=== PATIENT | female | born 1945 | race Caucasian/White ===

== ENCOUNTER 2022-08-12 10:45 | Outpatient (RCR) | payer MEDICARE, OTHER, SELFPAY ==
--- NOTE | 2022-07-14 11:02 | PT.OPDN ---
PT [facility] Daily Note PT [facility] Daily Note Start: 05/26/22 08:33 Freq: Status: Active Protocol: Document 07/14/22 09:59 CJT (Rec: 07/14/22 11:02 CJT [id number]) E-signed By Keyon Mancera, PT PT OP Daily Progress Note Visit Information Note Type Daily Note,Recert/Progress Note Visit Number [id number] Insurance Authorized Visits tbd Physician Authorized Visits eval and treat Insurance Information Recert Due Date 07/10/22 Insurance Name Medicare B Medical Diagnosis PO RT RCR Treating Diagnosis M25.511 - R shoulder pain M25.611 - R shoulder stiffness Referring Sudarshan Hamilton MD Subjective Subjective Pt notes she had her appointment with Dr. Espino last week and this went very well. Feels her strength and ROM is progressing well but is concerned that she has a bit too much tension in her shoulder during the wall shoulder flexion stretch. Denies pain in the shoulder but is having some soreness following her exercises with the bands. Home Exercise Home Exercise Comments [id number] Objective Other/Pertinent Objective R shoulder AROM Flexion/Abd/IR/ER - 168/170/60 (L3)/80 R shoulder strength: grossly 4 +/5 MMT in all directions Empty Can: 4/5 MMT Patient Instructed in Risks/Benefits Yes Therapeutic Exercise Therapeutic Exercise Minutes (minutes) 35 Therapeutic Exercise: To Restore UBE x 6 minutes Functional Status Band IR/ER with GRB 2 x 20 reps ea Band IR/ER at 90 degrees abduction - discontinued due to discomfort in Lateral shoulder Passive flexion stretch in supine 2 x 45 Body Blade reactive isometrics : ER/IR, scapular depression/ elevation 2 x 30 ea Manual Therapy Techniques Manual Therapy Minutes (minutes) 8 Manual Therapy Techniques STM to R UT, levator, pec minor/major, infraspinatus, teres group, serratus anterior , rhomboids, and thoracic paraspinals to reduce tissue tension and improve extensibility. Grade II-III AP mobilizations to R GHJ to improve flexion ROM Treatment Minutes Timed Code Treatment Minutes 43 Total Treatment Time 43 Billing Units Therapeutic Exercise Units 3 Assessment/Impression Assessment/Impression Lara shows excellent R shoulder ROM following mobilizations and stretching today. Initial measure of shoulder flexion was 150 degrees; 168 degrees at end of today's session. IR ROM still limited compared to L but is showing improvement with each session. Lara's strength is still limited but I do not expect it will increase much beyond where she is now as she is functional with her R arm. most importantly, Lara is progressing back into normal life well and using her R arm often and without hesitation for activities including reaching, grabbing, lifting, etc. Lara is due to recertification and I don't think I will need to see her after her next visit on [address]. [address] POC extending additional 4 weeks, 2 additional visits to be used if needed. Plan of Care Physical Therapy Goals STG - To be completed in 2-3 weeks: 1. Pt will report consistent use of sling to protect repaired supraspinatus tendon. MET 2. Pt will report ability to sleep 5-6 hours per night consistently with use of NSAIDs. MET 3. Pt will demo 100 degrees PROM flexion to reduce risk of adhesive capsulitis and progress in a timely manner in regard to her rehab protocol. MET LTG - To be completed in 8-12 weeks: 1. Pt to be I with HEP so that they may I manage progression of symptoms. 2. Pt will demo 5/5 MMT for all shoulder motions as indication of improved strength in R shoulder. NOT MET 3. Pt will report ability to garrison/doff bra with use of R hand so that she may dress I without shoulder pain. MET 4. Pt will report ability to sleep through the night without waking due to pain so that she may wake rested with reduced mental fatigue. MET 5. Pt will demo 165 degrees shoulder flexion and abduction so that she may reach cans of soup in top shelf in pantry. MET Daily Plan of Care Continue per POC Daily Plan of Care Comments 2 additional visits over 4 weeks. Certification I Certify That: Therapy Services Provided, Therapy Plan Established, Therapy Plan Reviewed Recertification Information Recertification Start Date 07/28/22 Recertification Due Date 08/28/22 Reasons to Continue Skilled Therapy Physical therapy services are indicated at this time for continued focus on maintaining /improving R shoulder ROM and strength. Pt continues to struggle with control of R GHJ with shoulder abducted to 90 degrees but shows good control and denies pain when performing activities in neutral positions. Will work on progressing to activities and exercises that involve reaching and strengthening away from the body. Rehabilitation Potential Excellent Continued Plan of Care and Interventions Therapeutic exercise for stretching and strengthening; manual therapy as needed to improve mobility Provider Signature Shows Agreement With POC & Medical Necessity Physician Comment/Change Comment or Changes Physician NPI Number #
== END 2022-10-12 11:21 | disposition home or self-care (01) ==
PROVIDERS: PCP Physician Assistant Medical; Visit Provider Orthopaedic Surgery Sports Medicine
DX: M25.511 Pain in right shoulder (principal); Z51.89 Encounter for other specified aftercare
CPT/HCPCS: 97110; 97140

== ENCOUNTER 2023-06-10 12:39 | Outpatient (CLI) | payer MEDICARE, OTHER, SELFPAY ==
--- NOTE | 2023-06-10 13:00 | CRLHL7_ITS ---
For Patients: As a result of the Century Cures Act, medical imaging exams and procedure reports are released immediately into your electronic medical record. You may view this report before your referring provider. If you have questions, please contact your health care provider. DXA BONE MINERAL DENSITY STUDY Reason for exam: Postmenopausal. Current height (in): 65.5. Weight (lb): 184. Menopause age: 52. Ethnicity: White. 1. Have you had a previous hip or vertebral fracture? No. 2. Have you had any fractures during your adult life which did not result from significant trauma (e.g., auto accident)? No. 3. Did either of your parents have a hip fracture? No. 4. Do you smoke? No. 5. Have you ever taken Glucocorticoids? No. 6. Do you have rheumatoid arthritis? No. 7. Do you have secondary osteoporosis? No. 8. Do you drink 3 or more alcoholic drinks per day? No. 9. Are you being treated for osteoporosis? No. 10. Have you ever taken any of the following medications: Actonel, Evista, Fosamax, Miacalcin, Reclast, Boniva, Forteo, HRT (i.e., estrogen/hormone therapy), Protelos, Prolia, Vitamin D, Calcium, other ??? please specify. ANSWER: Yes, vitamin D and B-6/B-12. 11. Do you have any of the following medical conditions: Anorexia or bulimia, asthma or emphysema, end stage renal disease, hyperparathyroidism, any seizure disorders, cancer, inflammatory bowel diseases, hysterectomy, other ??? please specify. ANSWER: No. 12. What was your maximum height (inches)? 66. 13. Do you perform weight bearing exercise regularly? Yes. 14. Do you regularly consume dairy products? Yes. 15. Do you drink caffeinated beverages? Yes. If female: 16. At what age did your period start? 14. 17. Are you premenopausal? No. 18. How many full-term pregnancies have you had? 2. 19. Have you ever missed your period for more than 6 months in a row (not including or menopause)? No. TECHNIQUE: Bone mineral density study was performed using the [employer]. FINDINGS: The results of the study expressed as bone mineral density (BMD) are as follows: Lumbar spine L1, L2, L4: BMD: 0.976 g/cm2. T-score: -0.5. Z-score: 1.9 Neck Left: BMD: 0.788 g/cm2. T-score: -0.6. Z-score: 1.6 Right: BMD: 0.911 g/cm2. T-score: 0.6. Z-score: 2.7 Total Left: BMD: 0.948 g/cm2. T-score: 0.1. Z-score: 1.9 Right: BMD: 0.971 g/cm2. T-score: 0.2. Z-score: 2.1 Radius Left 33%: BMD: 0.585 g/cm2. T-score: -1.8. Z-score: 0.8 IMPRESSION: Osteopenia. *Comparison exams done prior to 04/2020 were performed on different unit, [facility]. COMPARISON: Compared with scan of 05/28/2021, the bone mineral density has increased by 3.9 percent at the spine increased by 1.2 percent at the hip and increased by 1.2 percent at the left forearm. Compared with scan of 06/15/2019, the bone mineral density has decreased by 1.0 percent at the spine increased by 9.0 percent at the hip. Edvin Breaux M.D. Diagnostic Radiologist [email or web address] KAREN/[email or web address] babin/Dictated by: Edvin Breaux MD @ 06/10/2023 2:04:00 PM (Electronically Signed)
--- NOTE | 2023-06-10 13:31 | CRLHL7_ITS ---
For Patients: As a result of the Cures Act, medical imaging exams and procedure reports are released immediately into your electronic medical record. You may view this report before your referring provider. If you have questions, please contact your health care provider. BILATERAL SCREENING MAMMOGRAM WITH COMPUTER-AIDED DETECTION AND TOMOSYNTHESIS TECHNIQUE: CC and MLO views were obtained. These mammographic images have been obtained using full-field digital technique. These mammographic images were interpreted with the benefit of computer-aided detection. Breast tomosynthesis was used in this interpretation. COMPARISON FILM: 05/28/21, 06/15/19, 05/18/18. FINDINGS: There are scattered areas of fibroglandular density. IMPRESSION: There is no radiographic evidence for malignancy. ASSESSMENT: BI-RADS Category 1: Negative RECOMMENDATION: Routine screening mammogram in 1 year. A lay language report of this examination will be provided to the patient. EDVIN GRISSOM M.D. Diagnostic Radiologist [email or web address] Transcribed: 06/11/2023, 3:[address]/Dictated by: Edvin Grissom MD @ 06/11/2023 9:56:00 AM (Electronically Signed)
== END 2023-06-10 12:40 | disposition home or self-care (01) ==
PROVIDERS: PCP Physician Assistant Medical; Visit Provider Physician Assistant Medical
DX: Z12.31 Encounter for screening mammogram for malignant neoplasm of breast; Z78.0 Asymptomatic menopausal state; M85.89 Other specified disorders of bone density and structure, multiple sites
CPT/HCPCS: 77063; 77067; 77080

== ENCOUNTER 2023-06-23 09:32 | Outpatient (CLI) | payer MEDICARE, OTHER, SELFPAY | END 2023-06-23 09:33 | disposition home or self-care (01) | LOC: NFLDREF 06-24 07:38 | PROVIDERS: PCP Physician Assistant Medical; Referring Provider Physician Assistant Medical; Visit Provider Physician Assistant Medical | DX: Z00.00 Encounter for general adult medical examination without abnormal findings (principal); D50.9 Iron deficiency anemia, unspecified; E78.5 Hyperlipidemia, unspecified; R03.0 Elevated blood-pressure reading, without diagnosis of hypertension | CPT/HCPCS: 80061; 84443 ==

== ENCOUNTER 2023-07-28 06:04 | Day surgery (SDC) | payer MEDICARE, OTHER, SELFPAY ==
[2023-07-28] MEDS: TETRACAINE 0.5% OPHTH 1 DROP EYE-RIGHT ×2 (06:30→06:35)
[2023-07-28] MEDS: KETOROLAC OPHTH 0.5% 1 DROP EYE-RIGHT ×2 (06:30→06:35)
[2023-07-28 06:41] VITALS: BP 163/78; PULSE 81; RESP 16; TEMP 36.6; O2SAT 98; BMI 30.7
--- NOTE | 2023-07-28 06:58 | SUR.PREOP ---
The eye drops brought by the patient (Ketorolac, Oflaxacin and Prednisolone) are examined and I have determined they are labeled by the patient's pharmacy for this patient as prescribed by the surgeon. The bottles are intact, recently obtained and appear to be correct.
[2023-07-28] MEDS: SODIUM CHLORIDE 0.9 % (FLUSH) 10 ML SYRINGE IVF (06:59)
[2023-07-28] MEDS: TETRACAINE 0.5% OPHTH 2 DROP EYE-RIGHT (07:09)
[2023-07-28] MEDS: BALANCED SALT IRRIG SOLN 15 ML EYE-RIGHT (07:11)
[2023-07-28 07:40] VITALS: BP 158/84; PULSE 75; RESP 16; TEMP 36.3; O2SAT 98
--- NOTE | 2023-07-28 07:51 | W.ANESCHARGE ---
Anesthesia Charges Start Date/Time Anesthesia Start Date: 07/28/23 Anesthesia Start Time: 07:07 Stop Date/Time Anesthesia Stop Date: 07/28/23 Anesthesia Stop Time: 07:42
--- NOTE | 2023-07-28 09:15 | W.PM.OPTPROC ---
Procedure Note Date of procedure: 07/28/[address] [facility] bill your pro fee for this procedure?: Yes Procedure Description: SURGEON: Sulma Maciel MD PREOPERATIVE DIAGNOSIS: Nuclear sclerotic cataract, right eye. POSTOPERATIVE DIAGNOSIS: Nuclear sclerotic cataract, right eye. NAME OF OPERATION: Phacoemulsification of cataract with posterior chamber intraocular lens implantation in the right eye. ANESTHESIA: Topical. ESTIMATED BLOOD LOSS: Less than 2 cc. COMPLICATIONS: None. PATHOLOGY SPECIMEN: None. INDICATIONS: See consult note for details. The risks, benefits and alternatives of the procedure were explained to the patient, who elected to proceed and signed informed consent to do so. PROCEDURE: The patient was brought to the pre-holding area where the right eye was identified as the operative eye. I placed my initials above this eye. The patient received eye drops consisting of 0.5% tetracaine, 1% tropicamide, 10% phenylephrine, and 0.5% ketorolac. The patient was then brought to the operating room where the right eye was again identified as the operative eye. The eye was prepped with Betadine and draped in the usual sterile ophthalmic fashion. A #15 super-sharp blade was used to create a paracentesis site. 1% non-preserved intracameral lidocaine was injected into the anterior chamber. Endocoat was injected into the anterior chamber. A 2.4 mm keratome was used to create a three-plane self-sealing incision 1 mm anterior to the temporal limbus. A cystotome was used to create an anterior capsular leaflet. The Utrata forceps were used to extend this to form a continuous curvilinear capsulorrhexis. Hydrodissection was performed. The cataract was removed with phacoemulsification using the [id number]-[id number]-[id number] technique. The irrigation and aspiration tip was used to remove the remaining cortex. Healon was injected into the capsular bag. An JED ZCB00 intraocular lens of 22.0 diopters was injected into the capsular bag. The irrigation and aspiration tip was used to remove the remaining viscoelastic. Balanced salt solution on a cannula was used to hydrate the wound, and the wound was found to be watertight. The pupil was noted to be round. DISPOSITION: The patient was taken to the recovery room and discharged to home in stable condition. The patient was instructed to call me or go to the emergency department with any sudden change, including dramatic loss of vision, severe pain in the eye or eyebrow region, nausea, or vomiting. The patient will follow up in the clinic tomorrow morning.
== END 2023-07-28 08:20 | disposition home or self-care (01) ==
PROVIDERS: PCP Physician Assistant Medical; Visit Provider Ophthalmology
PROC: (CPT 66984; principal; 2023-07-28 06:15)
DX: H25.11 Age-related nuclear cataract, right eye (principal)
CPT/HCPCS: 66984; 00142; A9270; J2250; J3010; V2632

== ENCOUNTER 2023-08-11 06:05 | Day surgery (SDC) | payer MEDICARE, OTHER, SELFPAY ==
[2023-08-11] MEDS: KETOROLAC OPHTH 0.5% 1 DROP EYE-LEFT ×2 (06:15→06:20)
[2023-08-11] MEDS: TETRACAINE 0.5% OPHTH 1 DROP EYE-LEFT ×2 (06:15→06:20)
[2023-08-11 06:34] VITALS: BMI 30.3
[2023-08-11 06:39] VITALS: BP 163/72; PULSE 84; RESP 16; TEMP 36.7; O2SAT 96
[2023-08-11] MEDS: SODIUM CHLORIDE 0.9 % (FLUSH) 10 ML SYRINGE IVF (06:45)
--- NOTE | 2023-08-11 06:57 | SUR.PREOP ---
The eye drops brought by the patient (Ketorolac and Prednisolone) are examined and I have determined they are labeled by the patient's pharmacy for this patient as prescribed by the surgeon. The bottles are intact, recently obtained and appear to be correct.
[2023-08-11] MEDS: TETRACAINE 0.5% OPHTH 2 DROP EYE-LEFT (07:13)
[2023-08-11] MEDS: BALANCED SALT IRRIG SOLN 15 ML EYE-LEFT (07:18)
--- NOTE | 2023-08-11 07:43 | W.ANESCHARGE ---
Anesthesia Charges Start Date/Time Anesthesia Start Date: 08/11/23 Anesthesia Start Time: 07:10 Stop Date/Time Anesthesia Stop Date: 08/11/23 Anesthesia Stop Time: 07:46 Summary Extremes of Age - Over 70 or under 1: [employer]
--- NOTE | 2023-08-11 07:51 | W.ANESCHARGE ---
Anesthesia Charges Start Date/Time Anesthesia Start Date: 08/11/23 Anesthesia Start Time: 07:10 Stop Date/Time Anesthesia Stop Date: 08/11/23 Anesthesia Stop Time: 07:46 Summary Extremes of Age - Over 70 or under 1: MDA
[2023-08-11 07:53] VITALS: BP 188/91; PULSE 80; RESP 16; TEMP 36.2; O2SAT 96
--- NOTE | 2023-08-11 08:30 | W.PM.OPTPROC ---
Procedure Note Date of procedure: 08/11/23 Will [facility] bill your pro fee for this procedure?: Yes Procedure Description: SURGEON: Sulma Maciel MD PREOPERATIVE DIAGNOSIS: Nuclear sclerotic cataract, left eye. POSTOPERATIVE DIAGNOSIS: Nuclear sclerotic cataract, left eye. NAME OF OPERATION: Phacoemulsification of cataract with posterior chamber intraocular lens implantation in the left eye. ANESTHESIA: Topical. ESTIMATED BLOOD LOSS: Less than 2 cc. COMPLICATIONS: None. PATHOLOGY SPECIMEN: None. INDICATIONS: See consult note for details. The risks, benefits and alternatives of the procedure were explained to the patient, who elected to proceed and signed informed consent to do so. PROCEDURE: The patient was brought to the pre-holding area where the left eye was identified as the operative eye. I placed my initials above this eye. The patient received eye drops consisting of 0.5% tetracaine, 1% tropicamide, 10% phenylephrine, and 0.5% ketorolac. The patient was then brought to the operating room where the left eye was again identified as the operative eye. The eye was prepped with Betadine and draped in the usual sterile ophthalmic fashion. A #15 super-sharp blade was used to create a paracentesis site. 1% non-preserved intracameral lidocaine was injected into the anterior chamber. Endocoat was injected into the anterior chamber. A 2.4 mm keratome was used to create a three-plane self-sealing incision 1 mm anterior to the temporal limbus. A cystotome was used to create an anterior capsular leaflet. The Utrata forceps were used to extend this to form a continuous curvilinear capsulorrhexis. Hydrodissection was performed. The cataract was removed with phacoemulsification using the [id number]-[id number]-[id number] technique. The irrigation and aspiration tip was used to remove the remaining cortex. Healon was injected into the capsular bag. An JED ZCB00 intraocular lens of 24.0 diopters was injected into the capsular bag. The irrigation and aspiration tip was used to remove the remaining viscoelastic. Balanced salt solution on a cannula was used to hydrate the wound, and the wound was found to be watertight. The pupil was noted to be round. DISPOSITION: The patient was taken to the recovery room and discharged to home in stable condition. The patient was instructed to call me or go to the emergency department with any sudden change, including dramatic loss of vision, severe pain in the eye or eyebrow region, nausea, or vomiting. The patient will follow up in the clinic tomorrow morning.
== END 2023-08-11 08:06 | disposition home or self-care (01) ==
PROVIDERS: PCP Physician Assistant Medical; Visit Provider Ophthalmology
PROC: (CPT 66984; principal; 2023-08-11 06:15)
DX: H25.12 Age-related nuclear cataract, left eye (principal)
CPT/HCPCS: 66984; 00142; 99100; A9270; J2250; J3010; V2632

== ENCOUNTER 2023-09-27 11:43 | Observation (INO) | payer MEDICARE, OTHER, SELFPAY ==
--- NOTE | 2023-09-27 08:58 | W.ANESCHARGE ---
Anesthesia Charges Start Date/Time Anesthesia Start Date: 09/27/23 Anesthesia Start Time: 08:30 Stop Date/Time Anesthesia Stop Date: 09/27/23 Anesthesia Stop Time: 09:00 Summary Extremes of Age - Over 70 or under 1: MDA
--- NOTE | 2023-09-27 09:00 | W.ANESCHARGE ---
Anesthesia Charges Start Date/Time Anesthesia Start Date: 09/27/23 Anesthesia Start Time: 08:30 Stop Date/Time Anesthesia Stop Date: 09/27/23 Anesthesia Stop Time: 09:00
[2023-09-27 11:51] VITALS: BP 178/77; PULSE 85; RESP 18; TEMP 36.1; O2SAT 97
[2023-09-27] MEDS: ERTAPENEM 1 GM in 0.9 % SODIUM CHLORIDE Mini-bag 100 ML IVPB (12:20)
[2023-09-27] MEDS: 0.9 % SODIUM CHLORIDE 1000 ml 1,000 ML 100 ML IV ×2 (12:20→23:37)
--- NOTE | 2023-09-27 14:52 | PM.GSHP ---
History of Present Illness History of Present Illness Date Seen: 09/27/23 Chief complaint: Hx of polyps Narrative: Lara Flores is a 78 year old female admitted following a colonoscopy earlier today. The procedure was made difficult secondary to significant diverticular disease and luminal narrowing within the rectosigmoid. A small perforation was noted and treated endoscopically with patient admitted for observation overnight. She denies any abdominal pain since the procedure, but does report ?gurgling? in her lower abdomen. She has continued to pass gas. Is feeling hungry, no reported nausea or vomiting. No fever since being admitted. Her abdominal surgical history is positive for a , with evidence of a lower midline well-healed incision. She is not on any blood thinners. Review of Systems Status of ROS: Reports: 10 or more systems reviewed and unremarkable except as noted in History and below [facility] Medical History (Updated 09/27/23 @ 15:01 by Salina Oshea MD) Viral URI with cough ?J06.9 - Acute upper respiratory infection, unspecified (ICD-10) Strain of neck muscle ?S16.1XXA - Strain of muscle, fascia and tendon at neck level, initial encounter (ICD-10) Neck pain of over 3 months duration ?M54.2 - Cervicalgia (ICD-10) Benign paroxysmal positional vertigo ?H81.10 - Benign paroxysmal vertigo, unspecified ear (ICD-10) Surgical History S/P arthroscopy of right shoulder (03/25/22) ?Z98.890 - Other specified postprocedural states (ICD-10) History of tonsillectomy ?Z90.89 - Acquired absence of other organs (ICD-10) History of foot surgery ?Z98.890 - Other specified postprocedural states (ICD-10) History of dilation and curettage ?Z98.890 - Other specified postprocedural states (ICD-10) History of colonoscopy ?Z98.890 - Other specified postprocedural states (ICD-10) History of section ?Z98.891 - History of uterine scar from previous surgery (ICD-10) Social History (Updated 06/23/23 @ 10:07 by Kateryna Le ~ [facility]) Narrative: Adopted What is your current living situation?: I presently have a place to live Problems where you live: no known problems In the past 12 months, utilities in danger of being shut off: no In past 12 months, lack of transportation kept you from medical appts, meetings, work, or getting things needed for daily living: no In the past 12 mos, have been you worried that your food would run out before you had money to buy more?: never true In the past 12 mos, the food you bought just didn't last and you didn't have money to buy more?: never true Smoking Status: Never smoker Do you use any of these nicotine containing products: None Second hand tobacco smoke exposure: No How often do you have a drink containing alcohol: never How often do you have six or more drinks on one occasion: Never AUDIT-C Alcohol total score: 0 Non-prescribed substance use: denies use Caffeine: Yes Are you now , , , , never or living with a partner: Social isolation score (0-1 are the most socially isolated patients): 1 How often does anyone, including family, friends and others, physically hurt you: never How often does anyone, including family, friends and others, insult or talk down to you: never How often does anyone, including family, friends and others, threaten you with harm: never How often does anyone, including family, friends and others, scream or curse at you: never Little interest or pleasure in doing things: not at all Feeling down, depressed, or hopeless: not at all Are you using contraception or practicing any form of control: No Meds Home Medications and Allergies Home Medications Medication Instructions Recorded Confirmed Type cholecalciferol (vitamin D3) 50 2,000 unit PO DAILY 07/03/22 09/27/23 History mcg (2,000 unit) tablet ferrous gluconate 324 mg (38 mg 324 mg PO DAILY 07/03/22 09/27/23 History iron) tablet multivitamin (Multiple Vitamins 1 tab PO DAILY 07/03/22 09/27/23 History tablet) gabapentin 300 mg capsule 300 mg PO HS 06/23/23 09/27/23 History Allergies Allergy/AdvReac Type Severity Reaction Status Date / Time Penicillins Allergy Severe Verified 09/02/23 15:05 latex Allergy Mild Itch, rash Verified 09/02/23 15:05 adhesive Allergy Unknown Redness, Verified 09/02/23 15:05 swelling, itching Sutures AdvReac Unknown Verified 09/02/23 15:05 Exam Narrative: Exam Narrative: General: Alert and oriented, no acute distress. Nontoxic in appearance. Respiratory: Equal breath rise bilaterally, maintained on room air CV: Well perfused, regular rhythm and rate Abdomen: Soft, mild tenderness to deep palpation left lower quadrant with no guarding or rebound. No other areas of tenderness noted. No evidence of peritonitis. Const: Vital Signs, click to edit/add: Vital Signs - 24 hr 09/27/23 11:51 Temperature 97.0 F L Pulse Rate [Pulse Oximeter] 85 Respiratory Rate 18 Blood Pressure [Le ft Arm] 178/77 H Pulse Oximetry 97 Oxygen Delivery Me thod Room Air Results Results Labs: Labs pending. Abdomen CT scan report/results: report reviewed and image reviewed Additional studies: [place] [address] Diagnostic Imaging Report Patient: Lara Flores MR#: [id number] : 1945 Acct:[id number] Loc: CT Service Date: 09/27/[address]: Salina Oshea M.D. Ordering Physician: Salina Oshea M.D. Date of Service: 09/27/23 Procedure(s): CT abdomen pelvis wo con Accession Number(s): [id number] cc: Salina Oshea M.D.; Brianna GONZALEZ~ For Patients: As a result of the Cures Act, medical imaging exams and procedure reports are released immediately into your electronic medical record. You may view this report before your referring provider. If you have questions, please contact your health care provider. INDICATION: Recent colonoscopy, concern for perforated rectum. COMPARISON: None. TECHNIQUE: CT of the abdomen and pelvis without intravenous contrast. Multiplanar axial, coronal, and sagittal reformats were reconstructed. Intravenous contrast: None. Oral contrast was not administered. FINDINGS: Lung bases: Normal. Liver: Granulomas. Normal noncontrast attenuation. Gallbladder and biliary tree: Normal gallbladder. No biliary duct dilation. Pancreas: Normal. Spleen: Granulomas. Normal size. Adrenal glands: Normal. No nodules. Kidneys and bladder: Normal size and position. No obvious cyst or mass. No calculi. No urinary tract dilation. The urinary bladder is normal. GI: Large hiatal hernia. Small focal free air in the distal sigmoid colon adjacent to surgical clips. There is a moderate diverticular burden. No dilated bowel. Vessels: Normal caliber abdominal aorta with few calcified atherosclerotic plaques. Peritoneum: Small free air in the right pelvis and superiorly along liver. Free fluid. Lymph nodes: No adenopathy. Pelvis: Physiologic appearance of the reproductive organs. Densely calcified uterine fibroid.. Bones: No fractures. No focal bone lesions. Multilevel disc degeneration and facet arthropathy. IMPRESSION: Small perforation of the distal sigmoid colon adjacent to the surgical clips. There is a small amount of free intraperitoneal air. No ascites or abscess. Assessment and Plan Assessment and plan (1) Perforation of colon as colonoscopy complication: Status: Acute Plan Patient is a 78-year-old female, admitted secondary to a colonoscopy complication of perforation. Perforation is small (less than 1 cm) and was noted during the endoscopic procedure. Endoscopic repair was performed with two 16 mm clips to close the defect. The perforation occurred at approximately 20 cm on the scope, in the rectosigmoid. Patient was asymptomatic following the procedure but a CT scan was performed which demonstrated a small amount of intra-abdominal air above the liver, no ascites. A few foci of air was noted around the endoscopic clips. At this time the patient is hemodynamically stable, clinical exam shows some mild localized tenderness in left lower quadrant and an endoscopic repair is in place. Will plan at this time for conservative management as outlined below. I did discuss with the patient the possible need to go to the operating room should she have worsening abdominal pain, fevers or up trending inflammatory markers. -NPO, okay for sips with medication -IV fluids, normal saline -IV ertapenem -will restart gabapentin home medication, 300 mg p.o. at bedtime -okay to ambulate Please call with any acute clinical changes, questions or concerns.
[2023-09-27 15:25] VITALS: BP 165/73; PULSE 101; RESP 18; TEMP 36.6; O2SAT 99
[2023-09-27 16:48] LABS: Basophils Percent Auto 0.1 % (0.0-3.0); Eosinophils Percent Auto 0.4 % (0.0-7.0); Hemoglobin* 14.6 gm/dL (12.0-16.0); Lymphocytes Percent Auto 5.1 % (20-44); Mean Corpuscular HGB Conc 33 gm/dL (32-36); Mean Corpuscular Hemoglobin 29 pg (26-34); Mean Corpuscular Volume 88 fL (80-100); Monocytes Percent Auto 6.3 % (0.0-11.0); Neutrophils Percent Auto 88.1 % (42.0-72.0); Platelet Count* 231 K/uL (140-440); RDW Coefficient of Variation % 14.1 % (11.5-15.5); Red Blood Count 4.98 m/uL (4.00-5.20); White Blood Count* 13.26 K/uL (4.50-11.00)
[2023-09-27 16:50] LABS: Chloride* 103 mmol/L (96-114); Potassium* 3.8 mmol/L (3.6-5.1); Slide Review Reflex No; Sodium* 139 mmol/L (135-149)
[2023-09-27 16:53] LABS: Creatinine* 0.8 mg/dL (0.5-1.5); Estimated Glomerular Filt Rate 76 ml/min
[2023-09-27 16:54] LABS: Anion Gap 12 mEq/L (7-15); Blood Urea Nitrogen* 10 mg/dL (7-30); Carbon Dioxide* 24 mmol/L (20-32); Glucose* 89 mg/dL (60-115)
[2023-09-27 16:55] LABS: Calcium* 8.7 mg/dL (8.4-10.6)
[2023-09-27 16:57] LABS: C Reactive Protein* 0.8 mg/dL (0.5-1.0)
--- NOTE | 2023-09-27 18:17 | PC.NURSE ---
Pt alert and oriented. Pt had no complaints of pain. Pt independent in room. Pt NPO. Pt had HTN and tachycardia. Pt afebrile. No N/V. Dr. Oshea following.
[2023-09-27 19:00] VITALS: BP 158/63; PULSE 115; RESP 16; TEMP 37.3; O2SAT 96
[2023-09-27] MEDS: GABAPENTIN 300 MG CAPSULE PO (19:52)
[2023-09-27 23:00] VITALS: BP 155/71; PULSE 106; RESP 16; TEMP 36.6; O2SAT 96
--- NOTE | 2023-09-28 00:32 | PC.NURSE ---
Elevated BP, tachycardic. Denies pain. Very loud S1, S2 heart sounds. Hyperactive BS. NPO- 80 cc ice chips. PIV- NS @ 100 cc/hr. Up independently in room. Will continue to monitor, follow POC, and keep pt and family updated. Eileen Denton RN
[2023-09-28 03:00] VITALS: BP 161/72; PULSE 91; RESP 18; TEMP 36.4; O2SAT 96
[2023-09-28 07:10] LABS: Hematocrit 39.7 % (33.0-51.0); Mean Corpuscular Hemoglobin 29 pg (26-34); Mean Corpuscular Volume 90 fL (80-100); Red Blood Count 4.42 m/uL (4.00-5.20); White Blood Count* 7.86 K/uL (4.50-11.00)
[2023-09-28 07:11] LABS: Basophils Absolute Auto 0.02 K/uL (0.00-0.30); Basophils Percent Auto 0.3 % (0.0-3.0); Eosinophils Absolute Auto 0.07 K/uL (0.00-0.50); Eosinophils Percent Auto 0.9 % (0.0-7.0); Immature Granulocytes Abs Auto 0.01 K/uL (0.00-0.30); Immature Granulocytes Pct Auto 0.1 %; Lymphocytes Percent Auto 15.8 % (20-44); Mean Corpuscular HGB Conc 33 gm/dL (32-36); Monocytes Percent Auto 10.4 % (0.0-11.0); Neutrophils Percent Auto 72.5 % (42.0-72.0); Platelet Count* 206 K/uL (140-440); RDW Coefficient of Variation % 14.4 % (11.5-15.5)
[2023-09-28 07:23] LABS: Slide Review Reflex No
[2023-09-28 07:50] VITALS: BP 161/89; PULSE 107; RESP 16; TEMP 36.1; O2SAT 98
[2023-09-28 07:53] LABS: C Reactive Protein* 5.7 mg/dL (0.5-1.0)
--- NOTE | 2023-09-28 07:59 | PM.GSPN ---
Subjective Subjective Date Seen: 09/28/23 Interval history: Patient is doing well this morning. Denies any abdominal pain and has been getting up in the room independently. Did not sleep well last night secondary to the monitors going off and her IV needing to be replaced. Is feeling hungry this morning. No fevers and no concerns. Exam Narrative: Exam Narrative: Gen: alert and oriented, non toxic and NAD Abd: soft, non tender and non distended. No guarding or rebound. Const: Vital Signs, click to edit/add: Vital Signs - 24 hr 09/27/23 11:51 09/27/23 15:25 09/27/23 15:25 Temperature 97.0 F L 97.9 F Pulse Rate [Pulse Oximeter] 85 101 H 101 H Respiratory Rate 18 18 Blood Pressure [Le ft Arm] 178/77 H 165/73 H Pulse Oximetry 97 99 Oxygen Delivery Me thod Room Air Room Air 09/27/23 19:00 09/27/23 23:00 09/27/23 23:00 Temperature 99.2 F 97.8 F Pulse Rate [Pulse Oximeter] 115 H 106 H 106 H Respiratory Rate 16 16 Blood Pressure [Le ft Arm] 158/63 H 155/71 H Pulse Oximetry 96 96 Oxygen Delivery Me thod Room Air Room Air 09/28/23 03:00 Temperature 97.6 F Pulse Rate [Pulse Oximeter] 91 Respiratory Rate 18 Blood Pressure [Le ft Arm] 161/72 H Pulse Oximetry 96 Oxygen Delivery Me thod Room Air Labs/Imaging Labs Labs: WBC normal at 7, CRP pending this monring. Progress Note: A&P Assessment and plan (1) Perforation of colon as colonoscopy complication: Status: Acute Assessment and Plan: Patient is post procedure day 1 for small perforation of the colon following colonoscopy. This was recognized during exam and repaired intra op with clips. Some mild tachycardia overnight, non this morning. HDS and afebrile. Exam improved compared to yesterday with no point tenderness in LLQ. WBC normal. Will advance patient to clear liquid diet and reassess after meal. Anticipate possible discharge later today. Will plan for a full liquid diet for [address] scan in 1 week. Will also plan for a 5 day course of antibiotics.
--- NOTE | 2023-09-28 08:28 | PC.NURSE ---
Patient pleasant, alert and oriented. Ambulated to the toilet independently. Patient had ice chips during night. Denied pain or abdominal discomfort. Patient reports having two loose BMs during the night with a consistency of clear-yellow fluid (from bowel Prep) with small pieces/particles of stool. IV to inside right forearm unable to be flushed. IV removed and new one placed on outside right forearm.
[2023-09-28] MEDS: 0.9 % SODIUM CHLORIDE 1000 ml 1,000 ML 100 ML IV (10:29)
[2023-09-28 11:41] VITALS: BP 167/77; PULSE 83; RESP 16; TEMP 36.4; O2SAT 97
[2023-09-28] MEDS: ERTAPENEM 1 GM in 0.9 % SODIUM CHLORIDE Mini-bag 100 ML IVPB (11:42)
--- NOTE | 2023-09-28 15:11 | PC.NURSE ---
Pt alert and oriented. Pt had no complaints of pain. Pt independent in room. Pt advanced to clear liquid diet and tolerated well. Pt had HTN. Pt afebrile. No N/V.?Pt's IV removed catheter intact. Pt discharged with daughter.
--- NOTE | 2023-09-28 18:11 | PC.NURSE ---
Cipro prescription called in to [facility] as they had not received transmission. Patient aware.
== END 2023-09-28 15:07 | disposition home or self-care (01) ==
LOC: MEDSURG 12:09
PROVIDERS: Admitting Provider Surgery; PCP Physician Assistant Medical; Visit Provider Surgery
DX: K91.71 Accidental puncture and laceration of a digestive system organ or structure during a digestive system procedure (principal); K57.30 Diverticulosis of large intestine without perforation or abscess without bleeding; R00.0 Tachycardia, unspecified; Z98.890 Other specified postprocedural states; Z90.89 Acquired absence of other organs; Z98.891 History of uterine scar from previous surgery; Z86.010 Personal history of colon polyps
CPT/HCPCS: 00811; 00812; 36415; 45381; 74176; 80048; 85025; 86140; 99100; A9270; G0378; G0379; J1335; J2704; J7030

== ENCOUNTER 2023-10-15 09:30 | Outpatient (CLI) | payer MEDICARE, OTHER, SELFPAY | END 2023-10-15 09:31 | disposition home or self-care (01) | LOC: NFLDREF 10-22 10:19 | PROVIDERS: PCP Physician Assistant Medical; Referring Provider Physician Assistant Medical; Visit Provider Physician Assistant Medical | DX: R03.0 Elevated blood-pressure reading, without diagnosis of hypertension (principal) | CPT/HCPCS: 80053 ==

== ENCOUNTER 2024-01-04 10:45 | Outpatient (RCR) | payer MEDICARE, OTHER, SELFPAY ==
--- NOTE | 2024-01-03 12:54 | PT.OPE ---
PT [facility] Outpatient Eval PT [facility] Outpatient Eval Start: 12/31/23 14:09 Freq: Status: Active Protocol: Document 12/31/23 14:09 ERIN (Rec: 12/31/23 14:13 ERIN [id number]) E-signed By Gordon Mcnally DPT, MS Physical Therapy Outpatient Evaluation Insurance Information Recert Due Date 03/30/24 Insurance Name Medicare B Medical Diagnosis Benign paroxysmal positional vertigo Treating Diagnosis Dizziness, sensory disorganization, imbalance. Subjective Subjective Patient is a 78 y.o. female who presents to PT following an episode of severe dizziness 14-16 hours yesterday of insidious origin. Describes severe, unrelenting dizziness yesterday while sitting in her recliner watching TV. Has a hx of several episodes of BPPV but these sxs felt more severe and different with dizziness in all positions. Getting in<>out of bed has not been difficult, generally feeling off being pulled to the R since she has felt better. Describes a sinus infection last week but these sxs have resolved. Feeling better but remains dizzy with quick movements and her balance feels off. Pt hopes to resolve dizziness to prevent falls and return to performing all daily activities. Denies changes in hearing or vision when not having episode of dizziness. PSH of RCR. AGGR factors: walking, uneven surfaces, quick head movements , walking in dark. ALLEV factors: rest, slow movement. Pt finished paperwork 15 min into today?s session. Pain Comments Min-mod dizziness Current Work Status Retired Precautions Therapy Limitations/Systems Review Not Limited Objective Functional Test Performed & Score DHI: 46 4-Item DGI: 10/12 with decreased velocity and mild path dev horizontal head movements Assessment Assessment/Impression Pt displays signs and symptoms consistent with an episode of vestibular neuritis with sensory disorganization, static and dynamic balance imbalance found with testing. All BPPV testing negative with pt displaying primarily residual balance deficits. Significant time spent discussing different causes of dizziness and prognosis vestibular neuritis. She responded well to MT, vision and balance exercises with decreased sxs following today? s session. She would benefit from continued skilled therapy to address these limitations. Primary Functional Limitations Walking, uneven surfaces, quick head movements, walking in dark Plan of Care Rehabilitation Potential Excellent Physical Therapy Goals Therapy goals to be completed in 10 weeks: 1. 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 2. Patient will report resolution of dizziness sxs with all daily and work activities for >6 consecutive days. 3. Patient will display improved Romberg balance on firm and foam surfaces with eyes closed >6 sec with minimal sway to improve safety walking in dark and on compliant surfaces. 4. Pt will report >75% improvement in DHI questionnaire to significantly improve kira to daily activities. Coordination/Communication With Referral Source Treatment Plan/Direct Interventions Neuromuscular Re-ed, Therapeutic Exercises Frequency/Duration 1-2x per week for at least 6- 10 visits, decreasing frequency as able. Patient Will Be Discharged From Therapy Completion of LTG(s),Skills Plateau,Independent w/HEP, Independently Progressing Evaluation Billing Untimed Code Treatment Minutes 25 Complexity Moderate Certification Information Initial Certification Date 12/31/23 Ending Certification Date 03/30/24 Provider Signature Shows Agreement With POC & Medical Necessity Physician Signature & Date Requested Please Sign/Date Here Physician Comment/Change : Physician NPI Number #
--- NOTE | 2024-01-04 12:00 | PT.OPDN ---
PT [facility] Outpatient Daily Note PT [facility] Outpatient Daily Note Start: 12/31/23 14:09 Freq: Status: Active Protocol: Document 01/04/24 11:37 ERIN (Rec: 01/04/24 12:00 ERIN [id number]) E-signed By SANTA EstrellaT, MS PT OP Daily Progress Note Visit Information Note Type Daily Note Visit Number 2 Insurance Authorized Visits - Physician Authorized Visits Eval and treat Insurance Information Recert Due Date 03/30/24 Insurance Name Medicare B Medical Diagnosis Benign paroxysmal positional vertigo Treating Diagnosis Dizziness, sensory disorganization, imbalance. Subjective Subjective Pt reports she experienced a flare up of dizziness sxs while sitting at [employer] on Wednesday with her with sudden onset of a wave of mod-high levels of dizziness. The coffee shop was quiet and she was slightly leaning forward with no head positional changes. Elevated dizziness sxs at rest since with increased imbalance but continues to deny room spinning dizziness sensations or dizziness with supine<>sit, rolling in bed, forward bending or looking up. Describes sxs as a sensation of her moving versus seeing the room move like she has experienced previously with BPPV. Meclizine provided no sx relief. Pain Comments mild-high dizziness Objective Other/Pertinent Objective Coordination testing (finger to nose and alt pronation/ supination): normal H-test: normal Saccades: normal at multiple depths and distances Head shaking nystagmus: R + for 5-6 beats of nystagmus Head thrust test: B - Convergence: + 10 inches Krystin Hallpike: B negative Roll test: B negative VOR cancellation: + standing 1 picture on wall Static visual acuity: 20/20 DVA: - 1 line loss 20/25 4-Item DGI: 1012 with decreased velocity and mild path dev horizontal head movements Functional Test Performed & Score DHI: 46 Patient Instructed in Risks/Benefits Yes Neuromuscular Re-Ed Neuromuscular Reeducation Minutes ( 26 minutes) Neuromuscular Reeducation Comments Balance at counter alt firm and foam surfaces feet hip width apart 10 sec. Standing VOR cancellation looking at 1 picture on wall 6 reps x 3. Mild dizziness <30 sec following each set Walking with 90 deg turns SLS at counter firm surface Amb in hallway with horiz head turns with mild path deviation and mild dizziness < 15 sec following. Grounding exercise seated with e/c and deep diaphragmatic breaths to decrease sympathetic drive. Significant time spent discussing with pt about different causes, prognosis and recurrence rate of different forms of dizziness, particularly comparing vestibular neuritis. Emphasized importance of medical management via her provider with current research suggesting pharmacuteical management with prednisone, anti-viral medication or a combination of both, if appropriate for Lara. Treatment Minutes Timed Code Treatment Minutes 26 Total Treatment Time 26 Billing Units Neuromuscular Reeducation Units 2 Assessment/Impression Assessment/Impression Pt displays continued signs and symptoms consistent with an episode of vestibular neuritis with R-sided + head- shaking nystagmus test, sensory disorganization, static and dynamic imbalance found with testing. Elevated dizziness sxs at rest with no positional changes with increased sensitivity to watching TV, busy environments and visual challenges consistent with a vestibular neuritis. All BPPV testing negative again today with no elevation in sxs with positional changes with pt displaying continued residual balance and VOR cancellation deficits. All PUBLIC TRANSIT SPECIALIST testing negative with no red flags for neurological deficits during each 2 PT visits. Pt's provided Brianna Ball PA-C has been contacted regarding findings with pt likely benefiting greatly from pharmaceutical management of vestibular neuritis. Current research suggests treatment via prednisone, anti-viral medication or a combination of these medications, depending on the patient's PMH and current medications. Significant time spent discussing different causes of dizziness and prognosis vestibular neuritis. She responded well visual, and static and dynamic balance exercises with decreased dizziness sxs following today? s session. She would benefit from continued skilled therapy to address these limitations. Plan of Care Physical Therapy Goals Therapy goals to be completed in 10 weeks: 1. 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 2. Patient will report resolution of dizziness sxs with all daily and work activities for >6 consecutive days. 3. Patient will display improved Romberg balance on firm and foam surfaces with eyes closed >6 sec with minimal sway to improve safety walking in dark and on compliant surfaces. 4. Pt will report >75% improvement in DHI questionnaire to significantly improve kira to daily activities. Daily Plan of Care Continue per POC Daily Plan of Care Comments Progress static and dynamic balance, as able. Reassess balance, vision and BPPV testing. Recertification Information Provider Signature Shows Agreement With POC & Medical Necessity
== END 2024-05-03 23:59 | disposition home or self-care (01) ==
PROVIDERS: PCP Physician Assistant Medical; Visit Provider Physician Assistant Medical
DX: H81.11 Benign paroxysmal vertigo, right ear (principal); R26.81 Unsteadiness on feet; Z51.89 Encounter for other specified aftercare
CPT/HCPCS: 97112; 97162

== ENCOUNTER 2024-04-18 10:10 | Outpatient (CLI) | payer MEDICARE, OTHER, SELFPAY ==
--- OUTSIDE RECORDS SUMMARY | 2024-04-18 10:12 | XMS_ITS | Clinical Summary ---
Author Name Unknown Organization [facility] Address [address] [place] [id number] Care Team Providers Care Cigar Head Holer Name Role Phone No Ref-Primary, Physician Primary Care Provider Allergies Active Allergy Reactions Criticality Noted Date Comments Penicillins 04/22/2018 Medications No known medications Active Problems No known active problems Social History Tobacco Use Types Packs/Day Years Used Date Smoking Tobacco: Never Smokeless Tobacco: Never Tobacco Cessation:Counseling Given: No Sex and Gender Information Value Date Recorded Sex Assigned at Not on file Gender Identity Not on file Sexual Orientation Not on file Last Filed Vital Signs Vital Sign Reading Time Taken Comments Blood Pressure 126/70 04/22/2018 8:17 AM CDT Pulse - - Temperature - - Respiratory Rate 16 04/22/2018 8:17 AM CDT Oxygen Saturation - - Inhaled Oxygen Concentration - - Weight 85.8 kg (189 lb 1.6 oz) 04/22/20 18 8:17 AM CDT Height 168.3 cm (5' 6.25) 04/22/2018 8 :17 AM CDT with shoes Body Mass Index 30.29 04/22/2018 8:17 AM CDT Plan of Treatment Not on file Care Teams Cigar Head Holer Relationship Specialty Start Date End Date No Ref-Primary, Physician PCP - General 04/19/18
--- OUTSIDE RECORDS SUMMARY | 2024-04-18 10:12 | XMS_ITS | Clinical Summary ---
Author Name Unknown Organization [facility] s [facility] Address [place], [place] [address] Care Team Providers Care Rubber Tubing Backer Name Role Phone Brianna Ball PA-C Primary Care Provider [phone] Allergies Active Allergy Reactions Criticality Noted Date Comments Penicillins Angioedema 06/14/2023 Medications Medication Sig Dispensed Refills Start Date End Date Status multivitamin (MVI) tablet Take 1 Tablet by mouth once daily. Active gabapentin (NEURONTIN) 300 mg capsuleIndications:N ight sweats Take 1 Capsule (300 mg) by mouth once daily. At bedtime for night sweats 90 Capsule 3 09/13/2023 Active Encounters Date Type Department Care Team Description 02/08/2024 Telephone [facility] [address] [place] [address] Adali Vinson DO from Last 3 Months Immunizations Name Administration Dates Next Due Influenza, High-dose Inactivated 019,09/06/2018,08/11/2017,2015,08/22/2015 Influenza, High-dose Quadriv alent Inactivated 09/09/2021 Influenza, Inactivated AIIV4 (Age 65+ Years) Preserv Free 09/25/2022,09/16/2020 Td, Preservative Free (age > = 7 Years) 04/19/2018 Zoster (Shingrix-RZV, recombinant) 08/17/2019, Family History Relation Name Status Comments Daughter Alive Son Alive Social History Tobacco Use Types Packs/Day Years Used Date Smoking Tobacco: Never Smokeless Tobacco: Never Tobacco Cessation:Counseling Given: Not Answered Alcohol Use Standard Drinks/Week Comments Yes 0 (1 standard drink = 0.6 oz pur e alcohol) ocassional PHQ-2 Answer Date Recorded PHQ-2 TOTAL SCORE 0 06/14/2023 Sex and Gender Information Value Date Recorded Sex Assigned at Not on file Gender Identity Not on file Sexual Orientation Not on file Obstetrics History Para Term AB IAB SAB Ectopic Multiple Livin g Live Births 2 2 2 2 Date Outcome GA Total Labor Labor/2nd/3rd Weight Sex Delivery Anes PTL Rosa A1 A5 Name Cl in Term Term Last Filed Vital Signs Vital Sign Reading Time Taken Comments Blood Pressure 152/70 09/13/2023 1:23 PM CDT Pulse 80 09/13/2023 1:23 PM CDT Temperature - - Respiratory Rate - - Oxygen Saturation - - Inhaled Oxygen Concentration - - Weight 85.3 kg (188 lb) 09/13/2023 1:23 PM CDT Height - - Body Mass Index - - Plan of Treatment Health Maintenance Due Date Last Done Comments Tdap 1956 BMI (ht and wt on same day) for age 18+ 1965 Hepatitis C screening for ag e 18-79 1965 DEXA/DXA scan for age 65+ 2012 Medicare Wellness for age 65+ 2012 Pneumococcal series for age 65+ (1 of 1 - PCV) 2012 COVID-19 vaccine series (2022- season) 2023 09/11/2022, 09/24/2021, 02/08/2021, Additional history exists Depression screening for age 12+ 06/14/2024 06/14/20 23 Influenza for age 65+ 07/30/2024 09/25/2022 , 09/09/2021, 09/16/2020, Additional history exists Tetanus booster 04/19/2028 04/19/2018 Zoster (shingles) series for age 50+ Completed 08/17/2019, 04/04/2019 Care Teams Rubber Tubing Backer Relationship Specialty Start Date End Date Brianna Ball, D[facility] [address] [place] [address] PCP - General Physician Dry Ice Maker 03/08/23
--- OUTSIDE RECORDS SUMMARY | 2024-04-18 10:12 | XMS_ITS | Referral Summary ---
Author Name Unknown Organization [facility] Address [address] [place] [address] Care Team Providers Care Cable Splicer Assistant Name Role Phone No Ref-Primary, Physician Primary [...] of Treatment Not on file Care Teams Cable Splicer Assistant Relationship Specialty Start Date End Date No Ref-Primary, Physician PCP - General 04/19/18
--- OUTSIDE RECORDS SUMMARY | 2024-04-18 10:12 | XMS_ITS | Clinical Summary ---
Author Name Unknown Organization [facility] Address [address] [place] [address] Care Team Providers Care Boardinghouse Keeper Name Role Phone Unavailable Primary Care Provider Unavailabl e Source Comments You are receiving this document as you are listed as the primary care provider,follow-up provider, or the patient has been referred to you for consultation.This is in compliance with the Medicare andSt[facility] Hospital[facility] EHR Incentive Program,which states Providers who transition their patient to another setting of careor provider of care or refers their patient to another provider of care shouldprovide summary care record for each transition of care or referral. [facility] Allergies Active Allergy Reactions Criticality Noted Date Comments Penicillins Other, see comments 01/06/2022 Medications Medication Sig Dispensed Refills Start Date End Date Status hydrocortisone valerate (WESTCORT) 0.2 % ointment Apply a thin layer to affected skin twice a day as needed for rash 45 g 2 01/06/2022 Active Active Problems No known active problems Social History Tobacco Use Types Packs/Day Years Used Date Smoking Tobacco: Never Assessed Sex and Gender Information Value Date Recorded Sex Assigned at Not on file Gender Identity Not on file Sexual Orientation Not on file Plan of Treatment Health Maintenance Due Date Last Done Comments Hep C Screening (Preventive Services) 1945 Medicare Annual Wellness Visit 1945 Dexa 2012 Pneumococcal 65+ Yrs (1 - PCV) 2012 DTaP/Tdap/Td (1 - Tdap) 04/20/2018 04/19/2018 COVID-19 Vaccine (4 - season) 2023 09/24/2021, 02/08/2021, 01/18/2021 Influenza (Season Ended) 2024 021, 09/16/2020, 09/04/2019, Additional history exists Zoster/Shingles Completed 08/17/2019, 04/04/2019 HepA Aged Out No longer eligi ble based on patient's age to complete this topic HepB Aged Out No longer eligi ble based on patient's age to complete this topic Hib Aged Out No longer eligi ble based on patient's age to complete this topic IPV (Polio) Aged Out No longer eligi ble based on patient's age to complete this topic MCV4 Aged Out No longer eligi ble based on patient's age to complete this topic
--- NOTE | 2024-04-18 10:15 | US_ITS ---
Patient: REYES ANDERSON Facility:?[facility] Patient ID:?[id number] Site Patient ID:?[id number]. Site :?[id number] Study:?US-Abdomen RUQ-04/18/2024 11:01:04 AM Ordering Physician:FIONA ARANDA Final Report: INDICATION: Epigastric pain COMPARISON: none TECHNIQUE: Real time crook scale imaging and color Doppler analysis was performed of the right upper quadrant. FINDINGS: The patient`s liver is of normal size and has mildly increased echogenicity. There is a normal appearance of the hepatic IVC and proximal abdominal aorta. There is no evidence of ascites. The gallbladder is of normal size and there is an echogenic and shadowing stone present within the gallbladder lumen measuring 2.3 x 1.1 x 2.2 cm. The gallbladder wall measures 2 mm in thickness. The common bile duct is of normal size and measures 4 mm in diameter at the level of the osny hepatis. The pancreas is not well visualized. There is no evidence of a stone or hydronephrosis within the right kidney. The right kidney measures 9.3 cm in length. IMPRESSION: Mild hepatic steatosis. Mobile 2.3 cm gallstone in the gallbladder lumen. Dictated by Edvin Breaux MD @ 04/18/2024 11:43:20 AM Signed by:?Edvin Breaux MD @04/18/2024 11:43:20 AM (Electronic Signature)
== END 2024-04-18 10:11 | disposition home or self-care (01) ==
LOC: US 10:11
PROVIDERS: PCP Physician Assistant Medical; Visit Provider Physician Assistant Medical
DX: R10.13 Epigastric pain (principal); K76.0 Fatty (change of) liver, not elsewhere classified; K80.20 Calculus of gallbladder without cholecystitis without obstruction
CPT/HCPCS: 76705

== ENCOUNTER 2024-06-22 06:26 | Outpatient (CLI) | payer MEDICARE, OTHER, SELFPAY ==
--- OUTSIDE RECORDS SUMMARY | 2024-06-22 06:28 | XMS_ITS | Clinical Summary ---
[facility] Address [address] [place] [address] Care Team Providers Care Laboratory Development Technician Name Role Phone Unavailable Primary Care Provider Unavailabl e Source Comments You are receiving this document as you are listed as the primary care provider,follow-up provider, or the patient has been referred to you for consultation.This is in compliance with the Medicare andT[facility] Hospitalcaid EHR Incentive Program,which states Providers who transition their patient to another setting of careor provider of care or refers their patient to another provider of care shouldprovide summary care record for each transition of care or referral. [employer] Allergies Active Allergy Reactions Criticality Noted Date [...] - season) 2023 09/24/2021, 02/08/2021, 01/18/2021 Influenza (#1) 2024 09/09/2021, 08/29, 09/04/2019, Additional history exists Zoster/Shingles Completed 08/17/2019, [...]
--- OUTSIDE RECORDS SUMMARY | 2024-06-22 06:28 | XMS_ITS | Referral Summary ---
Author Organization [facility] Address [address] [place] [address] Care Team Providers Care Scroll Shear Operator Name Role Phone No Ref-Primary, Physician Primary [...] of Treatment Not on file Care Teams Scroll Shear Operator Relationship Specialty Start Date End Date No Ref-Primary, Physician PCP - General 04/19/18
--- OUTSIDE RECORDS SUMMARY | 2024-06-22 06:28 | XMS_ITS | Clinical Summary ---
Author Organization [facility] Address [address] [place] [address] Care Team Providers Care Telesales Professional Name Role Phone No Ref-Primary, Physician Primary [...] of Treatment Not on file Care Teams Telesales Professional Relationship Specialty Start Date End Date No Ref-Primary, Physician PCP - General 04/19/18
--- OUTSIDE RECORDS SUMMARY | 2024-06-22 06:28 | XMS_ITS | Clinical Summary ---
Author Organization [facility] Address [place], [place] [address] Care Team Providers Care Mobile Marketing Specialist Name Role Phone Brianna Ball PA-C Primary Care Provider [phone] Allergies Active Allergy Reactions Criticality Noted Date Comments Omeprazole Rash,Itching 05/24/2024 blisters per patient Penicillins Angioedema 06/14/2023 Medications Medication Sig Dispensed Refills Start Date End Date Status multivitamin (MVI) tablet Take 1 Tablet by mouth once daily. Active famotidine (PEPCID) 20 mg tablet Take 20 mg by mouth at bedtime. Active cholecalciferol (Vitamin D-3) 2,000 unit capsule Take 2,000 units by mouth once daily. Active pyridoxine, vitamin B6, (Vitamin B-6) 100 mg tablet Take by mouth once daily. Active cyanocobalamin (Vitamin B-12) 500 mcg tablet Take by mouth once daily. Active gabapentin (NEURONTIN) 300 mg capsuleIndication s:Night sweats Take 1 Capsule (300 mg) by mouth once daily. At bedtime for night sweats 90 Capsule 06/09/2024 Active gabapentin (NEURONTIN) 300 mg capsuleIndication s:Night sweats Take 1 Capsule (300 mg) by mouth once daily. At bedtime for night sweats 90 Capsule 3 09/13/2023 06/09/2024 Discontinued (*Availabili ty/Formulary change/Cost of medication) Encounters Date Type Department Care Team Description 06/07/2024 Refill [facility] [address] [place] [address] Adali Vinson DO Refill Request (Gabapentin) 05/24/2024 10:00 AM CDT Office Visit [facility] [address] [place] [phone] Jose Gutierrez MD Consult (gerd) 05/24/2024 8:50 AM CDT - 05/24/2024 11:59 PM CDT Hospital Encounter [facility] [address] [place] [address] Jose Gutierrez MD Hiatal hernia 05/24/2024 Telephone [facility] [address] [place] [phone] Jose Gutierrez MD RDC Care Coordination 05/24/2024 Travel 05/21/2024 Travel 04/20/2024 Telephone [facility] [address] [facility] [address] [place] [phone] Jose Gutierrez MD Reflux from Last 3 Months Immunizations Name Administration [...] Outcome GA Total Labor Labor/2nd/3rd Weight Sex Type Anes PTL Rosa A1 A5 Name Clin Term Term Last Filed Vital Signs Vital Sign Reading Time Taken Comments Blood Pressure 164/84 05/24/2024 9:57 AM CDT Pulse 95 05/24/2024 9:57 AM CDT Temperature 36.8 ??C (98.2 ??F) 05/24/2024 9:57 AM CD T Respiratory Rate 16 05/24/2024 9:57 AM CDT Oxygen Saturation 96% 05/24/2024 9:57 AM CDT Inhaled Oxygen Concentration - - Weight 82.6 kg (182 lb 3.2 oz) 05/24/2024 9:57 A M CDT Height - - Body Mass Index - - Plan of Treatment Upcoming Encounters Date Type Department Care Team (Latest Contact Info) Description 07/21/2024 11:58 AM CDT Hospital Encounter [facility] [address] [place] [address] Jose Gutierrez MD [address] [place] [address] 07/21/2024 11:58 AM CDT - 07/21/2024 2:46 PM CDT Surgery [facility] [address] [place] [address] Jose Gutierrez MD [address] [address] LAPAROSCOPIC PARAESOPHAGEAL HIATAL HERNIA repair and partial fundoplication 08/02/2024 8:50 AM CDT Phone Office Visit [facility] [address] [phone] Vaishnavi Davis NP [address] [place] [address] Scheduled Procedures Name Priority Associated Diagnoses Date/Ti me LAPAROSCOPIC PARAESOPHAGEAL HIATAL HERNIORRHAPHY Elective Paraesophageal hernia Gastric volvulus 07/21/2024 11:58 AM CDT Health Maintenance Due Date Last Done Comments Tdap 1956 BMI (ht and wt on same day) for age 18+ 1965 Hepatitis C screening for ag e 18-79 1965 DEXA/DXA scan for age 65+ 2012 Medicare Wellness for age 65+ 2012 Pneumococcal series for age 65+ (1 of 1 - PCV) 2012 COVID-19 vaccine series (2022-24 season) 2024 10/15/2023, 09/11/2022, 09/24/2021, Additional history exists Depression screening for age 12+ 06/14/2024 06/14/20 23 Influenza for age 65+ 07/30/2024 09/25/2022 , 09/09/2021, 09/16/2020, Additional history exists Tetanus booster 04/19/2028 04/19/2018 Zoster (shingles) series for age 50+ Completed 08/17/2019, 04/04/2019 Procedures Procedure Name Priority Date/Time Associated Diagnosis Comments XR ESOPHAGUS Routine 05/24/2024 9:36 AM CDT Hiatal hernia from Last 3 Months Results * XR ESOPHAGUS (05/24/2024 9:36 AM CDT) Anatomical Region Laterality Modality Esophagus Digital Radiogra phy Impressions 05/24/2024 12:13 PM CDT Large paraesophageal hiatal hernia. Moderate dysmotility of the esophagus. Evaluation for reflux was limited by the presence of esophageal stasis. Narrative 05/24/2024 12:13 PM CDT INDICATION Known hiatal hernia. TECHNIQUE Single contrast esophagram. 13 mm barium tablet challenge Fluoroscopy time 1 minute 24 seconds. Findings: Esophagus: Normal caliber Motility: Abnormal. ??Stasis. ??Multiple nonpropulsive contractions. GE junction: Patent Large paraesophageal hiatal hernia. ??45% of the stomach intrathoracic. ?? Minimal rotation of the stomach. Miscellaneous: Gastric emptying was observed. Barium tablet: Barium tablet passed without obstruction. Jose Gutierrez MD FLUOROSCOPY from Last 3 Months Care Teams Mobile Marketing Specialist Relationship Specialty Start Date End Date Brianna Ball, PAWarnerC [address] [place] [address] PCP - General Physician Biochemistry Professor 03/08/23
--- NOTE | 2024-06-22 07:35 | W.ANESCHARGE ---
Anesthesia Charges Start Date/Time Anesthesia Start Date: 06/22/24 Anesthesia Start Time: 07:17 Stop Date/Time Anesthesia Stop Date: 06/22/24 Anesthesia Stop Time: 07:30 Summary Extremes of Age - Over 70 or under 1: PSYCHIATRIC MENTAL HEALTH NURSE
--- NOTE | 2024-06-22 11:27 | W.ANESCHARGE ---
Anesthesia Charges Start Date/Time Anesthesia Start Date: 06/22/24 Anesthesia Start Time: 07:17 Stop Date/Time Anesthesia Stop Date: 06/22/24 Anesthesia Stop Time: 07:30 Summary Extremes of Age - Over 70 or under 1: MDA
== END 2024-06-22 06:27 | disposition home or self-care (01) ==
LOC: OP CLINIC 06:26
PROVIDERS: PCP Physician Assistant Medical; Visit Provider Surgery
DX: Z01.818 Encounter for other preprocedural examination (principal); K44.9 Diaphragmatic hernia without obstruction or gangrene
CPT/HCPCS: 00731; 43239; 88305; 99100; J2704; J3010

== ENCOUNTER 2024-06-28 08:27 | Outpatient (CLI) | payer MEDICARE, OTHER, SELFPAY ==
--- OUTSIDE RECORDS SUMMARY | 2024-06-28 08:31 | XMS_ITS | Clinical Summary ---
Author Organization [facility] Address [address] [place] [address] Care Team Providers Care Bilingual Research Interviewer Name Role Phone Unavailable Primary Care Provider Unavailabl e Source Comments You are receiving this document as you are listed as the primary care provider,follow-up provider, or the patient has been referred to you for consultation.This is in compliance with the Medicare andSelect [facility] Shawcaid EHR Incentive Program,which states Providers who transition their patient to another setting of careor provider of care or refers their patient to another provider of care shouldprovide summary care record for each transition of care or referral. [employer] Allergies Active Allergy Reactions Criticality Noted Date [...]
--- OUTSIDE RECORDS SUMMARY | 2024-06-28 08:31 | XMS_ITS | Clinical Summary ---
Author Organization [facility] Address [address] [place] [address] Care Team Providers Care Foreclosure Home Inspector Name Role Phone No Ref-Primary, Physician Primary [...] of Treatment Not on file Care Teams Foreclosure Home Inspector Relationship Specialty Start Date End Date No Ref-Primary, Physician PCP - General 04/19/18
--- OUTSIDE RECORDS SUMMARY | 2024-06-28 08:31 | XMS_ITS | Referral Summary ---
Author Organization [facility] Address [address] [place] [address] Care Team Providers Care Home Care Companion Name Role Phone No Ref-Primary, Physician Primary [...] of Treatment Not on file Care Teams Home Care Companion Relationship Specialty Start Date End Date No Ref-Primary, Physician PCP - General 04/19/18
--- OUTSIDE RECORDS SUMMARY | 2024-06-28 08:31 | XMS_ITS | Clinical Summary ---
Author Organization [facility] & [facility] Address [place], [place] [address] Care Team Providers Care Waistline Joiner Overlock Name Role Phone Brianna Ball PA-C Primary Care Provider [phone] Allergies Active Allergy Reactions Criticality Noted Date [...] Encounters Date Type Department Care Team Description 06/22/2024 Lab Requisition [facility] [phone] William Mcmahon MD 06/07/2024 [facility]ill [facility] [address] [place] [phone] Adali Vinson, Refill Request (Gabapentin) 05/24/2024 10:00 AM CDT Office Visit [facility] [address] [phone] Jose Gutierrez MD Consult (gerd) 05/24/2024 8:50 AM CDT - 05/24/2024 11:59 PM CDT Hospital Encounter [facility] [address] [place] [address] Jose Gutierrez MD Hiatal hernia 05/24/2024 Telephone [facility] [address] [phone] Care Coordination 05/24/2024 Travel 05/21/2024 Travel 04/20/2024 Telephone [facility] [address] [phone] Jose Gutierrez MD Reflux from Last 3 [...] Description 07/21/2024 11:58 AM CDT Hospital Encounter [facility] [address] [place] [address] Jose Gutierrez MD [address] [address] 07/21/2024 11:58 AM CDT - 07/21/2024 2:46 PM CDT Surgery [facility] [address] [place] [address] Jose Gutierrez MD [address] [address] LAPAROSCOPIC PARAESOPHAGEAL HIATAL HERNIA repair and partial fundoplication 08/02/2024 8:50 AM CDT Phone Office Visit [facility] [address] [phone] Vaishnavi Davis NP [address] [place] [address] Scheduled Procedures Name Priority Associated Diagnoses Date/Ti [...] Procedure Name Priority Date/Time Associated Diagnosis Comments LAB TRACKING EVENT Routine 06/22/2024 7: 20 AM CDT PATH TISSUE EXAM Routine 06/22/2024 7:20 AM CDT XR ESOPHAGUS Routine 05/24/2024 9:36 AM CDT Hiatal hernia from Last 3 Months Results * LAB TRACKING EVENT (06/22/2024 7:20 AM CDT) Other (Other) Client Collect / Unknown 06/22/2024 7:20 AM CDT 06/22/2024 10:01 PM CDT William Mcmahon MD LAB BILL ONLY [facility] [address] [place] [address], * PATH TISSUE EXAM (06/22/2024 7:20 AM CDT) Case Report Pathology Report ?Case: [id number] ? Authorizing Provider: ??William Mcmahon MD ?Collected: ? 06/22/2024 0720 ? Ordering Location: ? [facility] ?Received: ?06/23/2024 0758 ? Pathologist: ? Tiffanie Johnson MD ? Specimens: ?? A) - Stomach Biopsy ? B) - Esophageal Biopsy ? 06/26/2024 3:00 PM CDT [facility] Final Diagnosis A) STOMACH, BIOPSY: 1. Gastric antral and body mucosae with no diagnostic abnormalities 2. Negative for Helicobacter B) ESOPHAGUS, DISTAL, BIOPSY: 1. Normal esophageal squamous mucosa 2. Negative for reflux changes and eosinophilic esophagitis 3. Negative for columnar mucosa 06/26/2024 3:00 PM CDT [facility] Clinical Information Preoperative assessment. Upper GI endoscopy showed no mucosal abnormalities. 06/26/2024 3:00 PM CDT [facility] Gross Description A) Received in formalin are 4 mccauley mucosal fragments ranging from 2 mm to 5 mm in greatest dimension, which are entirely submitted in one cassette. It is labeled with the patient's name and designated open random stomach. B) Received in formalin are 4 mccauley mucosal fragments ranging from 3 mm to 5 mm in greatest dimension, which are entirely submitted in one cassette. It is labeled with the patient's name and designated distal. Anali Ledezma 06/23/2024 10:03 AM 06/26/2024 3:00 PM CDT [facility] Microscopic Description The final diagnosis is based on microscopic examination of appropriate sections of all specimens. 06/26/2024 3:00 PM CDT [facility] Additional Information Interpreted at [facility] - [address] [place] [address] [address] 06/26/2024 3:00 PM CDT [facility] Other (Stomach Biopsy) 06/22/2024 7:20 AM CDT 06/23/2024 7:58 AM CDT Specimen (specimen) (Esophageal Biopsy) 06/22/2024 7:20 AM CDT 06/23/2024 7:58 AM CDT William Mcmahon MD PATHOLOGY/CYTOLOGY Performing Organization Address City/State/[facility] Co de Phone Number [facility] [address] [place] [address], * XR ESOPHAGUS (05/24/2024 9:36 AM CDT) [...] FLUOROSCOPY from Last 3 Months Care Teams Waistline Joiner Overlock Relationship Specialty Start Date End Date Brianna Ball PA-C [address] [place] [address] PCP - General Physician Business Office Technician 03/08/23
== END 2024-06-28 08:28 | disposition home or self-care (01) ==
PROVIDERS: PCP Physician Assistant Medical; Visit Provider Physician Assistant Medical
DX: Z00.00 Encounter for general adult medical examination without abnormal findings (principal); E78.5 Hyperlipidemia, unspecified; D50.9 Iron deficiency anemia, unspecified; I10 Essential (primary) hypertension
CPT/HCPCS: 80053; 80061; 84443

== ENCOUNTER 2024-09-27 10:37 | Outpatient (CLI) | payer MEDICARE, OTHER, SELFPAY ==
--- OUTSIDE RECORDS SUMMARY | 2024-09-27 10:41 | XMS_ITS | Referral Summary ---
Author Organization [facility] Address [address] [place] [address] Care Team Providers Care Scutcher Tender Name Role Phone No Ref-Primary, Physician Primary Care Provider Allergies Active Allergy Reactions Criticality Noted Date Comments Penicillins 04/22/2018 Medications No known medications Active Problems No known active problems Social History Tobacco Use Types Packs/Day Years Used Date Smoking Tobacco: Never Smokeless Tobacco: Never Tobacco Cessation:Counseling Given: No Comments Unknown Sex and Gender Information Value Date Recorded Sex Assigned at Not on file Legal Sex Female 10:19 AM CDT Gender Identity Not on file Sexual Orientation [...] CDT Plan of Treatment Not on file Insurance MEDICARE COMMERCIAL Care Teams Scutcher Tender Relationship Specialty Start Date End Date No Ref-Primary, Physician PCP - General 04/19/18
--- OUTSIDE RECORDS SUMMARY | 2024-09-27 10:41 | XMS_ITS | Clinical Summary ---
Author Organization [employer] [facility] s & [facility] Address [place], [place] [address] Care Team Providers Care Cable Testers Helper Name Role Phone Brianna Ball PA-C Primary Care Provider Allergies Active Allergy Reactions Criticality Noted Date Comments Adhesive Tape-Silicones Itching,Edema,Erythem a 07/20/2024 Latex Rash,Itching 07/20/2024 Omeprazole Rash,Itching 05/24/2024 blisters per patient Penicillins Angioedema High 06/14/2023 Sutures *Unknown 07/20/2024 07/20/24: With C-sections, allergic to sutures at that times, has had sutures since that time with no issues. Medications Medication Sig Dispensed Refills Start Date [...] for night sweats 90 Capsule 06/09/2024 Active Additional Information Patient taking differently:300 mg OralBEDTIME, At bedtime for night sweats, Informant: Other Medical Records, Reported on 07/20/2024 meclizine (ANTIVERT) 12.5 mg tablet Take 12.5 mg by mouth 3 times daily if needed. 12/31/2023 Active Ferrous Gluconate 324 mg (38 mg iron) tablet Take 324 mg by mouth once daily with a meal. Active IBUPROFEN ORAL Take by mouth. As needed Active oxyCODONE (ROXICODONE) 5 mg immediate release tabletIndications:Ga stric volvulus,Paraesophag eal hernia Take 1 Tablet (5 mg) by mouth every 4 hours if needed for Pain. 20 Tablet 07/21/2024 Active ibuprofen (ADVIL; MOTRIN) 600 mg tabletIndications:Ga stric volvulus,Paraesophag eal hernia Take 1 Tablet (600 mg) by mouth 4 times daily if needed for Pain. Alternate with Tylenol, add Oxycodone for severe pain. Maximum of 3200 mg in 24 hours. 07/21/2024 Active ondansetron (ZOFRAN ODT) 4 mg disintegrating tabletIndications:Ga stric volvulus,Paraesophag eal hernia Place 1 Tablet (4 mg) on the tongue every 8 hours if needed for Nausea/Vomiting. 24 Tablet 07/21/2024 Active acetaminophen (TYLENOL EXTRA STRGTH) 500 mg tabletIndications:Ga stric volvulus,Paraesophag eal hernia Take 2 Tablets (1,000 mg) by mouth every 6 hours if needed for Pain (For mild pain 1st choice. May take either Tylenol tablet or liquid, if both ordered.). Max acetaminophen dose: 4000mg in 24 hrs. 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 Encounters Date Type Department Care Team Description 09/06/2024 Telephone [facility] [address] [phone] Jose Gutierrez MD POST-SURGERY QUESTIONS 08/14/2024 Telephone [facility] [address] [phone] Jose Gutierrez MD Surgical Followup 08/02/2024 8:50 AM CDT Phone Office Visit [facility] [address] [phone] Vaishnavi Davis NP Phone Visit (P/O call laparoscopic paraesophogeal hiatal hernia repair and partial fundoplication DOS 07/21); Concerns (Pt reports that she is having an allergic reaction to the adhesive bandage tape. Notes having normal bowel movements since 08/01 after using Miralax and Senna. Needs advice on when she should receive her routine mammogram and vaccines.) 07/28/2024 Telephone [facility] [address] [place] [phone] Jose Gutierrez MD Post-op (POD # 7) 07/24/2024 Telephone [facility] [address] [place] [phone] Jose Gutierrez MD Surgical Followup (LAPAROSCOPIC PARAESOPHAGEAL HIATAL HERNIA repair and partial fundoplication/POD#3) 07/21/2024 11:59 AM CDT Anesthesia Event [facility] [address] [place] [address] Sandhya Honeycutt MD 07/21/2024 11:58 AM CDT - 07/21/2024 2:46 PM CDT Surgery [facility] [address] [place] [address] Jose Gutierrez MD LAPAROSCOPIC PARAESOPHAGEAL HIATAL HERNIA repair and partial fundoplication 07/21/2024 9:20 AM CDT - 07/21/2024 6:18 PM CDT Hospital Encounter [facility] [address] [place] [address] Jose Gutierrez MD Gastric volvulus (Primary Dx); Paraesophageal hernia Discharge Disposition: Home Self Care 07/20/2024 Travel 07/17/2024 Orders Only [facility] [address] [place] [address] Jose Gutierrez MD <No scans attached> 07/11/2024 Telephone [facility] [address] [place] [phone] Jose Gutierrez MD Education (Pre op teaching) from Last 3 Months Immunizations Name Administration [...] Not Answered Alcohol Use Standard Drinks/Week Comments Not Currently 0 (1 standard drink = 0.6 oz pur e alcohol) PHQ-2 Answer Date Recorded PHQ-2 TOTAL SCORE 0 06/14/2023 Social Connections Answer Date Recorded Frequency of Communication with Friends and Fami ly Not on file 08/02/2024 Sex and Gender Information Value Date Recorded [...] Sign Reading Time Taken Comments Blood Pressure 155/76 07/21/2024 4:30 PM CDT Pulse 80 07/21/2024 4:30 PM CDT Temperature 36.2 ??C (97.2 ??F) 07/21/2024 4:00 PM CD T Respiratory Rate 15 07/21/2024 4:30 PM CDT Oxygen Saturation 95% 07/21/2024 4:30 PM CDT Inhaled Oxygen Concentration - - Weight 77.6 kg (171 lb) 08/02/2024 8:24 AM CDT p t reported Height 166.4 cm (5' 5.5) 08/02/2024 8:24 AM CDT pt reported Body Mass Index 28.02 08/02/2024 8:24 AM CDT Plan of Treatment Health Maintenance Due Date Last Done Comments Tdap 1956 Hepatitis C screening for ag e 18-79 1965 DEXA/DXA scan for age 65+ 2012 Medicare Wellness for age 65+ 2012 Pneumococcal series for age 65+ (1 of 1 - PCV) 2012 RSV vaccine for adults or (1 - 1-dose 75+ series) 2022 Depression screening for age 12+ 06/14/2024 06/14/20 COVID-19 vaccine series ( season) 2024 10/15/2023, 09/11/2022, 09/24/2021, Additional history exists Influenza for age 65+ 07/30/2024 09/25/2022 , 09/09/2021, 09/16/2020, Additional history exists BMI (ht and wt on same day) for age 18+ 08/02/2025 08/02/2024 Tetanus booster 04/19/2028 04/19/2018 Zoster (shingles) series for age 50+ Completed 08/17/2019, 04/04/2019 Procedures Procedure Name Priority Date/Time Associated Diagnosis Comments ENDOTRACHEAL TUBE Routine 07/21/2024 2:5 2 PM CDT ENDOTRACHEAL TUBE Routine 07/21/2024 2:5 2 PM CDT ENDOTRACHEAL TUBE Routine 07/21/2024 2:5 2 PM CDT LAPAROSCOPIC PARAESOPHAGEAL HIATAL HERNIORRHAPHY Elective 07/21/2024 11:25 AM CDT Paraesophageal hernia Gastric volvulus POTASSIUM Preop 07/21/2024 10:56 AM CDT SCAN-CARDIAC STRIP 07/21/2024 12 :00 AM CDT SCAN CORRESP-LABORATORY RESULTS 07/20/2024 2:59 PM CDT SCAN CORRESP-EKG RESULTS 07/18/2024 9:21 AM CDT from Last 3 Months Results * HCHG TUBE PR1, HCHG INSTRUMENT DISP PR10, HCHG STYLET PR1 (07/21/2024 2:52 PM CDT) Sandhya Oteroy, MD - 07/21/2024 2:52 PM CDT Sandhya Honeycutt MD ? 07/21/2024 ??2:53 PM Procedure: ETT Patient location during procedure: OR ETT Properties Mask Ventilation: easy Final Technique: video laryngoscopy Type: straight Location: oral Cuffed: yes Tube Size: 7.0 mm Stylet: yes Laryngoscope Blade: Glidescope Blade Size: 3 Cormack-Lehane Grade View: 1 Insertion Attempts: 1 Placement Verification: auscultation, end tidal CO2 and symmetrical chest wall movement Assessment: pharynx clear, atraumatic and dentition unchanged Secured at: 21 Measured From: teeth Difficulty: 0 (not difficult) Sandhya Honeycutt MD ANESTHESIA PX NOTE O RDERABLES * POTASSIUM (07/21/2024 10:56 AM CDT) POTASSIUM 4.7 3.5 - 5.1 mmol/L 07/21/2024 11:45 AM CDT [facility] Blood BLOOD SPECIMEN / Unknown Add On / Unknown 07/21/2024 10:56 AM CDT 07/21/2024 11:10 AM CDT Sandhya Honeycutt MD CHEMISTRY [facility] [address] [place] [address], * SCAN-CARDIAC STRIP (07/21/2024 12:00 AM CDT) Narrative 07/21/2024 12:00 AM CDT Ordered by an unspecified provider. Other Clinical Staff OTHER * SCAN CORRESP-LABORATORY RESULTS (07/20/2024 2:59 PM CDT) Narrative 07/20/2024 2:59 PM CDT Ordered by an unspecified provider. Other Clinical Staff OTHER * SCAN CORRESP-EKG RESULTS (07/18/2024 9:21 AM CDT) Narrative 07/18/2024 9:21 AM CDT Ordered by an unspecified provider. Other Clinical Staff OTHER from Last 3 Months Advance Directives Documents on File Type Date Recorded Patient Classifier Expl anation Healthcare Directive 05/05/2024 06 024 * Full Code (Latest Code Status on File) Date Activated Date Inactivated Comments 07/21/2024 10:11 AM 07/21/2024 8:18 PM Question Answer Comments Code Status Discussion: Unable to Assess Preferences, Provider to review later Care Teams Cable Testers Helper Relationship Specialty Start Date End Date Brianna Ball PA-C [address] [place] [address] PCP - General Physician Oyster Picker 03/08/23
--- OUTSIDE RECORDS SUMMARY | 2024-09-27 10:41 | XMS_ITS | Clinical Summary ---
Author Organization [facility] Address [address] [place] [address] Care Team Providers Care Custodian Manager Name Role Phone No Ref-Primary, Physician Primary [...] on file Insurance MEDICARE COMMERCIAL Care Teams Custodian Manager Relationship Specialty Start Date End Date No Ref-Primary, Physician PCP - General 04/19/18
--- OUTSIDE RECORDS SUMMARY | 2024-09-27 10:41 | XMS_ITS | Clinical Summary ---
Author Organization [facility] Address [address], [place] [address] Care Team Providers Care Health Safety Instructor Name Role Phone Unavailable Primary Care Provider Unavailabl e Source Comments You are receiving this document as you are listed as the primary care provider,follow-up provider, or the patient has been referred to you for consultation.This is in compliance with the Medicare and[facility] EHR Incentive Program,which states Providers who transition their patient to another setting of careor provider of care or refers their patient to another provider of care shouldprovide summary care record for each transition of care or referral. The Gluten Free Gourmet Allergies Active Allergy Reactions Criticality Noted Date [...] 2012 DTaP/Tdap/Td (1 - Tdap) 04/20/2018 04/19/2018 RSV (1 - 1-dose 75+ series) 2022 COVID-19 Vaccine ( - season) 2024 09/24/2021, 02/08/2021, 01/18/2021 Influenza (#1) 2024 09/09/2021, [...] on patient's age to complete this topic RSV Aged Out No longer eligi ble based on patient's age to complete this topic MCV4 Aged Out No longer eligi ble based on patient's age to [place] [address]
--- NOTE | 2024-09-27 10:45 | CRLHL7_ITS ---
For Patients: As a result of the Century Cures Act, medical imaging exams and procedure reports are released immediately into your electronic medical record. You may view this report before your referring provider. If you have questions, please contact your health care provider. INDICATION: Leg pain and swelling TECHNIQUE: Ultrasound venous duplex lower right extremity. Compression venous exam was performed using crook-scale, color Doppler, and spectral Doppler imaging. COMPARISON: None. FINDINGS: Sonographic imaging demonstrates the right common femoral, deep femoral, superficial femoral, popliteal, posterior tibial and greater saphenous and the contralateral left common femoral veins to be fully compressible with normal color Doppler blood flow. IMPRESSION: Normal right lower extremity venous ultrasound, no sign of deep venous thrombosis. Dictated by Ricardo Jarvis MD @ 09/27/2024 11:40:55 AM (Electronically Signed)
== END 2024-09-27 10:38 | disposition home or self-care (01) ==
LOC: US 10:39
PROVIDERS: PCP Physician Assistant Medical; Visit Provider Physician Assistant Medical
DX: M79.604 Pain in right leg (principal); M79.89 Other specified soft tissue disorders
CPT/HCPCS: 93971

== ENCOUNTER 2024-11-01 14:08 | Outpatient (CLI) | payer MEDICARE, OTHER, SELFPAY ==
--- OUTSIDE RECORDS SUMMARY | 2024-11-01 14:11 | XMS_ITS | Referral Summary ---
Author Organization [facility] Address [address] [place] [id number] Care Team Providers Care Hydroelectric Station Chief Name Role Phone No Ref-Primary, Physician Primary [...] on file Insurance MEDICARE COMMERCIAL Care Teams Hydroelectric Station Chief Relationship Specialty Start Date End Date No Ref-Primary, Physician PCP - General 04/19/18
--- OUTSIDE RECORDS SUMMARY | 2024-11-01 14:11 | XMS_ITS | Clinical Summary ---
[facility] Address [address], [place] [address] Care Team Providers Care Keg Varnisher Name Role Phone Unavailable Primary Care Provider Unavailabl e Source Comments You are receiving this document as you are listed as the primary care provider,follow-up provider, or the patient has been referred to you for consultation.This is in compliance with the Medicare and[facility] Clinic[facility] EHR Incentive Program,which states Providers who transition their patient to another setting of careor provider of care or refers their patient to another provider of care shouldprovide summary care record for each transition of care or referral. Double Fusion Allergies Active Allergy Reactions Criticality Noted Date [...] patient's age to complete [place] [address]
--- OUTSIDE RECORDS SUMMARY | 2024-11-01 14:11 | XMS_ITS | Clinical Summary ---
Author Organization [facility] Address [place], [place] [address] Care Team Providers Care Price Economist Name Role Phone Brianna Ball PA-C Primary [...] Type Department Care Team Description 09/06/2024 Telephone [place] [facility] [address] [address] Jose Gutierrez MD POST-SURGERY QUESTIONS 08/14/2024 Telephone [facility] [address] [address] Jose Gutierrez MD Surgical Followup 08/02/2024 8:50 AM CDT Phone Office Visit [place] [facility] [address] [address] Vaishnavi Davis, ENROLLMENT PROCESSOR Phone Visit (P/O call laparoscopic paraesophogeal hiatal hernia repair and partial fundoplication DOS 07/21); Concerns (Pt reports that she is having an allergic reaction to the adhesive bandage tape. Notes having normal bowel movements since 08/01 after using Miralax and Senna. Needs advice on when she should receive her routine mammogram and vaccines.) from Last 3 Months Immunizations Name Administration [...] 80 07/21/2024 4:30 PM CDT Temperature 36.2 C (97.2 F) 07/21/2024 4:00 PM CDT Respiratory Rate 15 07/21/2024 4:30 PM CDT [...] screening for age 12+ 06/14/2024 06/14/20 23 COVID-19 vaccine series ( season) 2024 10/15/2023, 09/11/2022, 09/24/2021, Additional history exists Influenza for age 65+ 07/30/2024 09/25/2022 , 09/09/2021, 09/16/2020, Additional history exists BMI (ht and wt on same day) for age 18+ 08/02/2025 08/02/2024 Tetanus booster 04/19/2028 04/19/2018 Zoster (shingles) series for age 50+ Completed 08/17/2019, 04/04/2019 Advance Directives Documents on File Type Date Recorded Patient Marketing Research Coordinator Expl anation Healthcare Directive 05/05/2024 024 * Full Code (Latest Code Status on File) Date Activated Date Inactivated Comments 07/21/2024 10:11 AM 07/21/2024 8:18 PM Question Answer Comments Code Status Discussion: Unable to Assess Preferences, Provider to review later Care Teams Price Economist Relationship Specialty Start Date End Date Brianna Ball PA-C [address] [place] [id number] PCP - General Physician Hvac Technician Residential 03/08/23
--- OUTSIDE RECORDS SUMMARY | 2024-11-01 14:11 | XMS_ITS | Clinical Summary ---
Author Organization [facility] Address [address] [place] [address] Care Team Providers Care Mercerizing Range Feeder Name Role Phone No Ref-Primary, Physician Primary [...] on file Insurance MEDICARE COMMERCIAL Care Teams Mercerizing Range Feeder Relationship Specialty Start Date End Date No Ref-Primary, Physician PCP - General 04/19/18
--- NOTE | 2024-11-01 14:30 | CRLHL7_ITS ---
For Patients: As a result of the Century Cures Act, medical imaging exams and procedure reports are released immediately into your electronic medical record. You may view this report before your referring provider. If you have questions, please contact your health care provider. INDICATION: Right thigh pain. TECHNIQUE: Sagittal and axial T1, sagittal and axial T2 and sagittal STIR images. FINDINGS: There is convex right degenerative lumbar scoliotic curve Martin angle of approximately 15 degrees and apex at L3. No acute compression fractures. This distal spinal cord and conus medullaris appear normal. The conus terminates normally at the L1 level. At L1-2 no disc herniation or stenosis the spinal canal or neural foramen. At L2-3 minor disc bulging without stenosis of the spinal canal or neural foramen. At L3-4 degenerative disc space narrowing circumferential disc bulging and marginal spur formation and mild facet hypertrophy. Mild stenosis of the spinal canal and mild left-sided neural foraminal narrowing. At L4-5 degenerative disc space narrowing Mobic type 2 degenerative endplate signal changes. Mild annular bulging and marginal spur formation mild facet enlargement no stenosis of the spinal canal moderate right neural foraminal narrowing with potential impingement of the exiting right L4 nerve root. At L5-S1 degenerative disc desiccation. Mild annular bulge mild facet enlargement without stenosis the spinal canal or neural foramen. IMPRESSION: 1. Multilevel lumbar spondylosis. Convex right degenerative lumbar curve. 2. At L4-5, disk degeneration and facet enlargement with moderate right neural foraminal narrowing. Potential impingement of exiting right L4 nerve root. Correlate clinically for possible right L4 radiculopathy. 3. At L3-4 mild disc degeneration and mild left neural foraminal narrowing. Dictated by Laureano Hilliard MD @ 11/02/2024 3:31:08 PM (Electronically Signed)
== END 2024-11-01 14:09 | disposition home or self-care (01) ==
PROVIDERS: PCP Physician Assistant Medical; Visit Provider Physician Assistant Medical
DX: M79.651 Pain in right thigh (principal); M47.896 Other spondylosis, lumbar region; M51.369 Other intervertebral disc degeneration, lumbar region without mention of lumbar back pain or lower extremity pain; M54.50 Low back pain, unspecified; G89.29 Other chronic pain
CPT/HCPCS: 72148

== ENCOUNTER 2024-12-01 21:54 | Outpatient (REF) | payer MEDICARE, OTHER, SELFPAY ==
[2024-12-02 09:37] LABS: Ferritin* 25.9 ng/mL (11.1-264.0)
[2024-12-04 04:56] LABS: Vitamin D 25 Hydroxy* 52 ng/mL (30-80)
== END 2024-12-01 21:55 | disposition home or self-care (01) ==
LOC: LAB 21:54
PROVIDERS: PCP Physician Assistant Medical; Visit Provider Physician Assistant
DX: L64.8 Other androgenic alopecia (principal)
CPT/HCPCS: 36415; 82306; 82728; 84443; 97012; 97110; 97116; 97140; 97161; 97162

== ENCOUNTER 2024-12-20 11:08 | Outpatient (CLI) | payer MEDICARE, OTHER, SELFPAY ==
--- NOTE | 2024-12-20 11:30 | CRLHL7_ITS ---
For Patients: As a result of the Century Cures Act, medical imaging exams and procedure reports are released immediately into your electronic medical record. You may view this report before your referring provider. If you have questions, please contact your health care provider. BILATERAL SCREENING MAMMOGRAM WITH COMPUTER-AIDED DETECTION AND TOMOSYNTHESIS TECHNIQUE: CC and MLO views were obtained. These mammographic images have been obtained using full-field digital technique. These mammographic images were interpreted with the benefit of computer-aided detection. Breast Tomosynthesis was used in this interpretation. COMPARISON FILM: 06/10/23, 05/28/21, 06/15/19. FINDINGS: There are scattered areas of fibroglandular density. IMPRESSION: There is no radiographic evidence for malignancy. ASSESSMENT: BI-RADS Category 1: Negative RECOMMENDATION: Routine screening mammogram in 1 year. A lay language report of this examination will be provided to the patient. Laureano Welch M.D. Diagnostic/Nuclear Medicine Radiologist [email or web address] ALEXIS/zina SP/Dictated by: Laureano Welch MD @ 12/21/2024 10:28:00 AM (Electronically Signed)
== END 2024-12-20 11:09 | disposition home or self-care (01) ==
LOC: MAMMO 11:10
PROVIDERS: PCP Physician Assistant Medical; Visit Provider Physician Assistant Medical
DX: Z12.31 Encounter for screening mammogram for malignant neoplasm of breast (principal)
CPT/HCPCS: 77063; 77067

== ENCOUNTER 2025-01-30 07:05 | Outpatient (CLI) | payer MEDICARE, OTHER, SELFPAY | END 2025-01-30 07:06 | disposition home or self-care (01) | LOC: INJ CL 07:06 | PROVIDERS: PCP Physician Assistant Medical; Visit Provider Family Medicine | DX: M54.16 Radiculopathy, lumbar region (principal); M51.26 Other intervertebral disc displacement, lumbar region | CPT/HCPCS: 62323; J0702; Q9966 ==

== ENCOUNTER 2025-04-10 07:06 | Outpatient (CLI) | payer MEDICARE, OTHER, SELFPAY | END 2025-04-10 07:07 | disposition home or self-care (01) | LOC: INJ CL 07:06 | PROVIDERS: PCP Physician Assistant Medical; Visit Provider Family Medicine | DX: M54.16 Radiculopathy, lumbar region (principal); M51.369 Other intervertebral disc degeneration, lumbar region without mention of lumbar back pain or lower extremity pain | CPT/HCPCS: 64483; J1100; Q9966 ==

== ENCOUNTER 2025-04-13 10:00 | Outpatient (RCR) | payer MEDICARE, OTHER, SELFPAY ==
--- NOTE | 2024-10-04 16:21 | PT.OPE ---
PT [place] [facility] Eval PT [facility] Outpatient Eval Start: 10/04/24 13:10 Freq: Status: Active Protocol: Document 10/04/24 16:06 CJT (Rec: 10/04/24 16:20 CJT [id number]) E-signed By Keyon Mancera PT Physical Therapy Outpatient Evaluation Insurance Information Recert Due Date 01/02/25 Insurance Name Medicare B Medical Diagnosis Pain in R thigh Treating Diagnosis R hip pain R knee pain Referring Brianna Waterman Subjective Preferred Name Lara Morales Pt presents with complaints of R sided low back pain and R thigh pain. Pain started in R groin region about 1 year ago. Tylenol/IBP have been helpful until this past month. Pain has now progressed to the low back and is now having some pain in the lateral R hip and along R quad down to the knee. Pt also notes that she felt a pop in her R knee while walking down stairs at home and had some swelling in her ankle following, Has been wearing a compression sock to help with swelling in the ankle. PT has been doing some stretches that she learned from a previous bout of sciatica and these have been helping somewhat. Pain Comments 09/07 Date of Last Physician Visit 09/27/24 Current Work Status Retired Precautions Therapy Limitations/Systems Review Not Limited Objective Other/Pertinent Objective Lumbar ROM Extension - difficult to extend beyond neutral; notes pain in anterior and proximal R thigh Flexion - no limitations, no pain R/L Side Bend - limited with L SB and pt notes pain in R glute R Hip ROM Flexion - 100 IR/ER - 20/25 Extension - 0 L Hip ROM Flexion - 110 IR/ER - 25/35 Extension - 0 R knee ROM - 5-0-140 L knee ROM - 5-0-140 R Hip Strength Flexion - 4/5 MMT Abduction - 4/5 MMT Adduction - 5/5 MMT IR - 4/5 MMT ER - 5/5 MMT Extension - 4/5 MMT L Hip Strength Flexion - 4+/5 MMT Abduction - 4+/5 MMT Adduction - 5/5 MMT IR - 4/5 MMT ER - 5/5 MMT Extension - 4/5 MMT R knee Extension - 4+/5 MMT R Knee Flexion - 4+/5 MMT L knee Extension - 4+/5 MMT L knee Flexion - 4+/5 MMT R ankle DF - 4+/5 MMT L ankle DF - 4+/5 MMT Palpation: pt reports pain/ tenderness with palpation to R glute med, piriformis, medial and lateral aspects of R knee , posterior R knee Gait: pt appears to be avoiding full knee extension on R Special Testing Slump: negative B, more pain behind knee on L with testing SLR: negative B FADIR: negative B MELQUIADES: positive B for reduced ROM, worse R>L Catalina's: positive B Piriformis: positive R Hamstring: positive L>R Pelvis: slight R anterior Leg Length (R/L): 87.0cm bilaterally, consider measuring at next treatment session Assessment Assessment/Impression Lara is a very pleasant 79 year old female who presents to our clinic for evaluation and treatment of low back pain and R thigh pain. Testing today reveals deficits in pts LE ROM and strength (see objective). With her limitations in R hip AROM and quality of pain, I do worry that pts pain is coming from R hip OA. She has not had any imaging of the hip up to this point. Lara will likely benefit from performance of stretching and light strengthening exercises for the hips as well as soft tissue mobilization to hip and low back. The nature of the pts condition was explained and all questions were answered to the pts satisfaction. Skilled PT services are medically necessary to address deficits and return patient to highest level of function. Recommend physical therapy sessions 2 reducing to 1/week for 4-8 weeks. Pt agrees with this plan. Printout of HEP was given for I completion and pt gives verbal understanding of each exercise. Primary Functional Limitations Walking, standing Plan of Care Rehabilitation Potential Good Physical Therapy Goals STG - To be completed in 2-3 weeks: 1. Pt will report reduction in R thigh pain by factor of two so that she may go for short walks with her for pleasure. LTG - To be completed in 8 weeks: 1. Pt will be I with HEP so that she may I manage progression of symptoms. 2. Pt will report ability to shop for groceries without needing to keep hands on grocery cart for pain reduction, so that she may shop with her with manageable level of pain. 3. Pt will demo 5/5 MMT for all hip motions bilaterally to provide greater stability to B hips in standing. Treatment Plan/Direct Interventions Dry Needling,Electrical Stimulation,Gait Training,Heat ,Ice/Cold/Vasopneumatic,Joint Mobilization,Manual Therapy, Neuromuscular Re-ed,Self-Care/ Home Management,Therapeutic Activities,Therapeutic Exercises Frequency/Duration 2 reducing to 1/week for 4-8 weeks Patient Will Be Discharged From Therapy Completion of LTG(s),Skills Plateau,Independent w/HEP, Independently Progressing Evaluation Billing Untimed Code Treatment Minutes 50 PT Eval No Charge No Complexity Low Certification Information Initial Certification Date 10/04/24 Ending Certification Date 01/02/25 Provider Signature Required Yes Provider Signature Shows Agreement With POC & Medical Necessity Physician NPI Number Write NPI# Here Physician Comment/Change : Physician Signature & Date Requested Please Sign/Date Here
--- NOTE | 2024-10-19 10:56 | PT.OPDN ---
PT [facility] Daily Note PT [facility] Daily Note Start: 10/04/24 13:10 Freq: Status: Active Protocol: Document 10/19/24 09:42 CJT (Rec: 10/19/24 10:55 CJT [id number]) E-signed By Keyon Mancera, PT PT OP Daily Progress Note Visit Information Note Type Recert/Progress Note Visit Number 5 Physician Authorized Visits eval and treat Insurance Information Recert Due Date 01/02/25 Insurance Name Medicare B Medical Diagnosis Pain in R thigh Treating Diagnosis R hip pain R knee pain Lumbar radiculopathy Referring Brianna Waterman Subjective Preferred Name Lara Morales Pt reports she had a hard time sleeping last night due to R thigh pain. Pt thinks performing her HEP later in the evening may be causing increased symptoms and notes that Tylenol and IBP does not alleviate the pain enough to help her sleep. Date of Last Physician Visit 09/27/24 Home Exercise Home Exercise Comments Access Code: [email or web address] URL: [email or web address] Date: 10/04/2024 Prepared by: Keyon Mancera Exercises - Supine Lower Trunk Rotation - 1-2 x daily - 7 x weekly - 10 reps - Supine Piriformis Stretch with Foot on Ground - 1-2 x daily - 7 x weekly - 60 seconds hold - Supine Figure 4 Piriformis Stretch - 1-2 x daily - 7 x weekly - 60 seconds hold - Standing Quad Stretch with Table and Chair Support - 1-2 x daily - 7 x weekly - 60 seconds hold Objective Other/Pertinent Objective Lumbar ROM Extension - difficult to extend beyond neutral; notes pain in anterior and proximal R thigh *pt notes reduced pain in R thigh following today's positional treatment Flexion - no limitations, no pain R Hip Strength Flexion - 4/5 MMT Abduction - 4/5 MMT Adduction - 5/5 MMT IR - 4/5 MMT ER - 5/5 MMT Extension - 4/5 MMT L Hip Strength Flexion - 4+/5 MMT Abduction - 4+/5 MMT Adduction - 5/5 MMT IR - 4/5 MMT ER - 5/5 MMT Extension - 4/5 MMT R knee Extension - 4/5 MMT R Knee Flexion - 4/5 MMT L knee Extension - 5/5 MMT L knee Flexion - 5/5 MMT R ankle DF - 4+/5 MMT L ankle DF - 4+/5 MMT Palpation: pt reports pain/ tenderness with palpation to R glute med, piriformis, medial and lateral aspects of R knee , posterior R knee Gait: pt appears to be avoiding full knee extension on R Posture: standing - pt stands with R knee flexion and in front of L Patient Instructed in Risks/Benefits Yes Therapeutic Exercise Therapeutic Exercise Minutes (minutes) 15 Therapeutic Exercise: To Restore Lumbar extension machine, 50# Functional Status 2 x 10 Seated lumbar flexion stretch 4 x 30 Self STM with lacrosse ball to R lumbar paraspinals Education on opening/closing mechanics of lumbar spine with spine model, pictures; discussion on modification of HEP if symptoms persist Therapeutic Activity Therapeutic Activity Minutes (minutes) 5 Therapeutic Activities Comments L S/L with pillow under L lumbar spine to facilitate facet opening on R in lumbar region Manual Therapy Techniques Manual Therapy Minutes (minutes) 20 Manual Therapy Techniques STM to R thoracic and lumbar paraspinals, QL, iliolumbar ligament, glute med/min, and piriformis to reduce tissue tension and improve extensibility. 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 Pt does have weakness in R knee extension compared to L and is demonstrating postural changes to facilitate opening of the lumbar spine on R including standing with R knee flexion and R foot in front of her L. Pts symptoms are provoked with closing mechanics of the R lumbar spine and are alleviated with opening mechanics. I discussed with Lara today these opening and closing mechanics of the spine including how forward bending, L side bending, and L rotation will creating opening of the facet joints and intervertebral foramen space on the R side of the spine, and ideally reduce painful symptoms. Pt gave verbal understanding to these instructions. Pt also noted today that she would like to try dry needling of the lumbar spine if her symptoms persist . Today I updated Lara's HEP including exercises to help alleviate nerve root compression on the R side of her lumbar spine. We will reassess her symptoms when she returns to our clinic on Wednesday next week. Plan of Care Physical Therapy Goals STG - To be completed in 2-3 weeks: 1. Pt will report reduction in R thigh pain by factor of two so that she may go for short walks with her for pleasure. LTG - To be completed in 8 weeks: 1. Pt will be I with HEP so that she may I manage progression of symptoms. 2. Pt will report ability to shop for groceries without needing to keep hands on grocery cart for pain reduction, so that she may shop with her with manageable level of pain. 3. Pt will demo 5/5 MMT for all hip motions bilaterally to provide greater stability to B hips in standing. Daily Plan of Care Change POC; See Comments Daily Plan of Care Comments Lumbar radiculopathy added to treatment diagnosis. Consider dry needling of lumbar region for pts POC.
--- NOTE | 2024-11-07 12:20 | PT.OPDN ---
PT [facility] Daily Note PT [facility] Out[facility] Daily Note Start: 10/04/24 13:10 Freq: Status: Active Protocol: Document 11/07/24 10:34 CJT (Rec: 11/07/24 12:20 CJT [id number]) E-signed By Keyon Mancera, PT PT OP Daily Progress Note Visit Information Note Type Recert/Progress Note Visit Number 9 Physician Authorized Visits eval and treat Insurance Information Recert Due Date 01/02/25 Insurance Name Medicare B Medical Diagnosis Pain in R thigh Treating Diagnosis R hip pain R knee pain Lumbar radiculopathy Imaging Report Information MRI of Lumbar Spine (11/01/24) 1. Multilevel lumbar spondylosis. Convex right degenerative lumbar curve. 2. At L4-5, disk degeneration and facet enlargement with moderate right neural foraminal narrowing. Potential impingement of exiting right L4 nerve root. Correlate clinically for possible right L4 radiculopathy. 3. At L3-4 mild disc degeneration and mild left neural foraminal narrowing. Referring Brianna Waterman Subjective Preferred Name Lara Subjective Pt reports her pain is slightly improved. Reports that she is inching her way to getting better. Date of Last Physician Visit 09/27/24 Home Exercise Home Exercise Comments Access Code: [email or web address] URL: [email or web address] Date: 10/04/2024 Prepared by: Keyon Mancera Exercises - Supine Lower Trunk Rotation - 1-2 x daily - 7 x weekly - 10 reps - Supine Piriformis Stretch with Foot on Ground - 1-2 x daily - 7 x weekly - 60 seconds hold - Supine Figure 4 Piriformis Stretch - 1-2 x daily - 7 x weekly - 60 seconds hold - Standing Quad Stretch with Table and Chair Support - 1-2 x daily - 7 x weekly - 60 seconds hold Objective Other/Pertinent Objective Lumbar ROM Extension - difficult to extend beyond neutral; notes pain in anterior and proximal R thigh *pt notes reduced pain in R thigh following today's positional treatment Flexion - no limitations, no pain R Hip Strength Flexion - 4/5 MMT Abduction - 4/5 MMT Adduction - 5/5 MMT IR - 4/5 MMT ER - 5/5 MMT Extension - 4/5 MMT L Hip Strength Flexion - 4+/5 MMT Abduction - 4+/5 MMT Adduction - 5/5 MMT IR - 4/5 MMT ER - 5/5 MMT Extension - 4/5 MMT R knee Extension - 4/5 MMT R Knee Flexion - 4/5 MMT L knee Extension - 5/5 MMT L knee Flexion - 5/5 MMT R ankle DF - 4+/5 MMT L ankle DF - 4+/5 MMT Palpation: pts lumbar paraspinals significantly tighter on R vs L Gait: antalgic favoring R, limited R knee extension Posture: standing - pt stands with R knee flexion and in front of L Patient Instructed in Risks/Benefits Yes Manual Therapy Techniques Manual Therapy Minutes (minutes) 24 Manual Therapy Techniques STM to R thoracic and lumbar paraspinals, QL, iliolumbar ligament, glute med/min, and piriformis to reduce tissue tension and improve extensibility. Grade II LA dx of R LE to reduce joint surface congruency in R lumbar spine. Mechanical Traction Mechanical Traction Minutes (minutes) 20 Mechanical Traction Treatment Lumbar Traction,Patient Supine ,Legs Elevated,Intermittent Traction,Step Up & Step Down Mechanical Traction Comments 65lbs max, 45lbs min Treatment Minutes Timed Code Treatment Minutes 44 Total Treatment Time 44 Billing Units Manual Therapy Units 2 Mechanical Traction Units 1 Assessment/Impression Assessment/Impression Pts MRI indicates nerve root impingement at L4/5 level. This correlates well with pts symptoms. Today Lara and I discussed continued treatment options including STM, exercise, DN, mechanical traction and she is open to each of these. Pt may also be a good candidate for GERHARD of affected lumbar levels although she would like to hold off on pursuing this to see if changes in PT POC will continue to help resolve symptoms. Recommend continued PT services to address deficits and return pt to highest level of function. Primary Functional Limitations Standing, walking Plan of Care Physical Therapy Goals STG - To be completed in 2-3 weeks: 1. Pt will report reduction in R thigh pain by factor of two so that she may go for short walks with her for pleasure. 2. Pt will demo improved posture in standing with full R knee extension and reduced lean to L. LTG - To be completed in 8 weeks: 1. Pt will be I with HEP so that she may I manage progression of symptoms. 2. Pt will report ability to shop for groceries without needing to keep hands on grocery cart for pain reduction, so that she may shop with her with manageable level of pain. 3. Pt will demo 5/5 MMT for all hip motions bilaterally to provide greater stability to B hips in standing. Daily Plan of Care Continue per POC
--- OUTSIDE RECORDS SUMMARY | 2024-12-01 08:27 | XMS_ITS | Clinical Summary ---
Author Organization [facility] Address [address] [place] [address] Care Team Providers Care Linoleum Tile Floor Layer Name Role Phone No Ref-Primary, Physician Primary [...] on file Insurance MEDICARE COMMERCIAL Care Teams Linoleum Tile Floor Layer Relationship Specialty Start Date End Date No Ref-Primary, Physician PCP - General 04/19/18
--- OUTSIDE RECORDS SUMMARY | 2024-12-01 08:27 | XMS_ITS | Clinical Summary ---
Author Organization [email or web address] Address [place], [place] [address] Care Team Providers Care Portable Machine Sander Name Role Phone Brianna Ball PA-C Primary Care Provider [phone] Allergies Active Allergy Reactions Criticality Noted Date Comments Adhesive Tape-Silicones Itching,Edema,Erythem a 07/20/2024 Latex Rash,Itching 07/20/2024 Omeprazole Rash,Itching 05/24/2024 blisters per patient Penicillins Angioedema High 06/14/2023 Sutures *Unknown 07/20/2024 07/20/24: With C-sections, allergic to sutures at that times, has had sutures since that time with no issues. Medications multivitamin (MVI) tablet Take 1 Tablet by [...] once daily. Active gabapentin (NEURONTIN) 300 mg capsuleIndications :Night sweats Take 1 Capsule (300 mg) by mouth once daily. At bedtime for night sweats 90 Capsule 06/09/20 Active Additional Information Patient taking differently:300 mg OralBEDTIME, At bedtime for night sweats, Informant: Other Medical Records, Reported on 07/20/2024 meclizine (ANTIVERT) 12.5 mg tablet Take 12.5 mg by mouth 3 times daily if needed. 12/31/19 Active Ferrous Gluconate 324 mg (38 mg iron) tablet Take 324 mg by mouth once daily with a meal. Active IBUPROFEN ORAL Take by mouth. As needed Active oxyCODONE (ROXICODONE) 5 mg immediate release tabletIndications: Gastric volvulus,Paraesoph ageal hernia Take 1 Tablet (5 mg) by mouth every 4 hours if needed for Pain. 20 Tablet 4 2:31 PM CDT 07/21/20 Active ibuprofen (ADVIL; MOTRIN) 600 mg tabletIndications: Gastric volvulus,Paraesoph ageal hernia Take 1 Tablet (600 mg) by mouth 4 times daily if needed for Pain. Alternate with Tylenol, add Oxycodone for severe pain. Maximum of 3200 mg in 24 hours. 07/21/20 Active ondansetron (ZOFRAN ODT) 4 mg disintegrating tabletIndications: Gastric volvulus,Paraesoph ageal hernia Place 1 Tablet (4 mg) on the tongue every 8 hours if needed for Nausea/Vomiting. 24 Tablet 4 2:31 PM CDT 07/21/20 Active acetaminophen (TYLENOL EXTRA STRGTH) 500 mg tabletIndications: Gastric volvulus,Paraesoph ageal hernia Take 2 Tablets (1,000 mg) by mouth every 6 hours if needed for Pain (For mild pain 1st choice. May take either Tylenol tablet or liquid, if both ordered.). Max acetaminophen dose: 4000mg in 24 hrs. 07/21/20 Active Active Problems Problem Noted Date Diagnosed Date Paraesophageal hernia 07/21/2024 Gastric volvulus 07/21/2024 Encounters Date Type Department Care Team Description 09/06/2024 Telephone [facility] [address] [address] Jose Gutierrez MD POST-SURGERY QUESTIONS from Last 3 Months Immunizations Name Administration [...] and Fami ly Not on file 08/02/2024 Comments No Sex and Gender Information Value Date Recorded Sex Assigned at Not on file Legal Sex Female 11:08 AM CDT Gender Identity Not on file [...] age 65+ 2012 Pneumococcal series for age 50+ (1 of 1 - PCV) 2012 RSV vaccine for adults or (1 - 1-dose 75+ series) 2022 Depression screening for age 12+ 06/14/2024 06/14/20 23 COVID-19 vaccine series (2023- season) 2024 10/15/2023, 09/11/2022, 09/24/2021, Additional history exists Influenza for age 65+ 07/30/2024 09/25/2022 , 09/09/2021, 09/16/2020, Additional history exists BMI (ht and wt on same day) for age 18+ 08/02/2025 08/02/2024 Tetanus booster 04/19/2028 04/19/2018 Zoster (shingles) series for age 50+ Completed 08/17/2019, 04/04/2019 Insurance MEDICARE PB ONLY MEDICARE PART B HB ONLY COMMERCIAL MEDICARE PART A HB ONLY Advance Directives Documents on File Type Date Recorded Patient Extras Casting Director Expl anation Healthcare Directive 05/05/2024 024 * Full Code (Latest Code Status on File) Date Activated Date Inactivated Comments 07/21/2024 10:11 AM 07/21/2024 8:18 PM Question Answer Comments Code Status Discussion: Unable to Assess Preferences, Provider to review later Care Teams Portable Machine Sander Relationship Specialty Start Date End Date Brianna Ball, DINORAHC [address] [place] [id number] PCP - General Physician Program Development Specialist 03/08/23
--- OUTSIDE RECORDS SUMMARY | 2024-12-01 08:27 | XMS_ITS | Clinical Summary ---
Author Organization [facility] Address [address] [address] Care Team Providers Care Gravel Screener Name Role Phone Unavailable Primary Care Provider Unavailabl e Source Comments You are receiving this document as you are listed as the primary care provider,follow-up provider, or the patient has been referred to you for consultation.This is in compliance with the Medicare and[facility] Hospitalcaid EHR Incentive Program,which states Providers who transition their patient to another setting of careor provider of care or refers their patient to another provider of care shouldprovide summary care record for each transition of care or referral. [facility] Allergies Active Allergy Reactions Criticality Noted Date [...] on patient's [place] [address]
--- OUTSIDE RECORDS SUMMARY | 2024-12-01 08:27 | XMS_ITS | Continuity of Care Document ---
Author Name [facility] User [email or web address] l[facility] Address Unknown Organization Unknown Address Unknown Procedures FILTER APPLIED:Only known Procedures with Onset Date within the last 5 years Procedure Date Procedure Provider Stoney gibbs Information Status ECHO EXAM OF ABDOMEN (36526) Completed PT EVAL MOD COMPLEX 30 MIN (37239) Completed NEUROMUSCULAR REEDUCATION (21050) Completed COMPREHEN METABOLIC PANEL (21910) Completed ROUTINE VENIPUNCTURE (86478) Completed C-REACTIVE PROTEIN (94662) Completed COMPLETE CBC W/AUTO DIFF WBC (61179) Completed METABOLIC PANEL TOTAL CA (93558) Completed CT ABD PELVIS W/O CONTRAST (77810) Completed ANES LWR INTST NDSC NOS (74881) Completed ANES PT EXTEME AGE<1 YR >70 (26570) Completed COLONOSCOPY SUBMUCOUS NJX (73658) Completed ANESTH LENS SURGERY (75587) Completed XCAPSL CTRC RMVL INSJ IO LENS PROSTH W/O ECP (47034) Completed ANES PT EXTEME AGE<1 YR >70 (45889) Completed ASSAY THYROID STIM HORMONE (69261) Completed LIPID PANEL (19824) Comp leted Encounters FILTER APPLIED:Only known Encounters with Admission Date within the last 5 years Encounter Location Admission Discharge Billing Code [facility] Brianna Ball Outpatient Beat[facility] Maciel Outpatient [facility] Oshea Unknown [id number] [facility] Outpatient Brianna Ball Outpatient Brianna ardon Outpatient Brianna Ball Unknown [facility] DASHAWN ROSALES
--- OUTSIDE RECORDS SUMMARY | 2024-12-01 08:27 | XMS_ITS | Referral Summary ---
Author Organization [facility] Address [address] [place] [address] Care Team Providers Care Manufacturing Supervisor Name Role Phone No Ref-Primary, Physician Primary [...] on file Insurance MEDICARE COMMERCIAL Care Teams Manufacturing Supervisor Relationship Specialty Start Date End Date No Ref-Primary, Physician PCP - General 04/19/18
--- NOTE | 2024-12-07 11:43 | PT.OPE ---
PT [facility] PT [facility] Eval Start: 10/04/24 13:10 Freq: Status: Active Protocol: Document 12/07/24 11:39 ERIN (Rec: 12/07/24 11:40 ERIN [id number]) E-signed By Gordon Mcnally DPT, MS Physical Therapy Outpatient Evaluation Insurance Information Recert Due Date 03/07/25 Insurance Name Medicare B Medical Diagnosis Benign paroxysmal vertigo, right ear Treating Diagnosis R posterior canal BPPV, sensory disorganization and imbalance Subjective Subjective Patient presents to PT with c/ o severe positional vertigo and imbalance of insidious origin last night getting up and out of her chair after doing a puzzle for >1 hour. Experienced severe room spinning dizziness immediately coming up and required her ?s assistance getting upstairs to bed. Sxs have remained mod-severe today with looking up<>down, fwd bending , rolling in bed to the R and supine<>sit transfers causing room spinning dizziness for 5- 10 seconds. No vomiting but feels nauseous with elevated sxs. Has remained off balance with a drunken sensation with amb. Describes a hx of motion sensitivity with 1-2 previous episode of BPPV and an vestibular neuritis in 2023. Denies changes in his hearing or vision since onset. Currently receiving PT tx for R LE pain and weakness. Pt hopes to resolve dizziness to return to performing work and daily activities safely without dizziness. Pain Comments Mod - severe dizziness Current Work Status Retired Precautions Therapy Limitations/Systems Review Not Limited Objective Functional Test Performed & Score DHI: 86% Assessment Assessment/Impression + R rod hallpike testing with signs and symptoms consistent of R posterior canalithiasis BPPV. Pt presented as resolved following CRM x 2 with continued imbalance following tx requiring CGA assistance with amb from her PT and out to their vehicle. Sensory disorganization found with balance testing consistent with peripheral vestibular dysfunction and overreliance on her vision for balance. All other neurological testing normal. Instructed pt to avoid extreme flex or ext head positions over the next 48 hours to avoid recurrence of sxs. Pt will benefit from continued skilled PT intervention to address these limitations. Primary Functional Limitations Looking up<>down, fwd bending, rolling in bed to the R and supine<>sit transfers Plan of Care Rehabilitation Potential Excellent Physical Therapy Goals Therapy goals to be completed in 10 weeks: 1.Patient will display resolution of R posterior canalithiasis BPPV symptoms for >5 consecutive days to improve safety with work and daily activities. 2.Patient will display improved Romberg balance on foam surface with eyes closed >5 sec with minimal sway to decrease falls risk on compliant surfaces. 3.Pt will report >50% improvement in DHI to significantly improve kira to daily activities. Coordination/Communication With Referral Source Treatment Plan/Direct Interventions Canalith Repositioning, Neuromuscular Re-ed, Therapeutic Exercises Frequency/Duration 1-2x per week for 6-10 visits Patient Will Be Discharged From Therapy Completion of LTG(s),Skills Plateau,Independent w/HEP, Independently Progressing Evaluation Billing Untimed Code Treatment Minutes 23 Complexity Moderate Certification Information Initial Certification Date 12/07/24 Ending Certification Date 03/07/25 Provider Signature Required Yes Provider Signature Shows Agreement With POC & Medical Necessity Physician NPI Number Write NPI# Here Physician Comment/Change : Physician Signature & Date Requested Please Sign/Date Here
--- NOTE | 2025-01-03 10:52 | PT.OPDN ---
PT [facility] Daily Note PT [facility] Outpatient Daily Note Start: 10/04/24 13:10 Freq: Status: Active Protocol: Document 01/03/25 09:39 CJT (Rec: 01/03/25 10:52 CJT [id number]) E-signed By Keyon Mancera, PT PT [facility] Daily Progress Note Visit Information Note Type Recert/Progress Note Visit Number [id number] Physician Authorized Visits eval and treat Insurance Information Insurance Name Medicare B Medical Diagnosis Pain in R thigh Treating Diagnosis R hip pain R knee pain Lumbar radiculopathy Imaging Report Information MRI of Lumbar Spine (11/01/24) 1. Multilevel lumbar spondylosis. Convex right degenerative lumbar curve. 2. At L4-5, disk degeneration and facet enlargement with moderate right neural foraminal narrowing. Potential impingement of exiting right L4 nerve root. Correlate clinically for possible right L4 radiculopathy. 3. At L3-4 mild disc degeneration and mild left neural foraminal narrowing. Referring Brianna Waterman Subjective Preferred Name Lara Subjective Pt reports she would like to get a referral for an injection for her low back. Requests to have this done with Dr. Hill. Exericses going well at home and at the gym. Date of Last Physician Visit 09/27/24 Home Exercise Home Exercise Comments Access Code: [email or web address] URL: [email or web address]/ Date: 10/04/2024 Prepared by: Keyon Mancera Exercises - Supine Lower Trunk Rotation - 1-2 x daily - 7 x weekly - 10 reps - Supine Piriformis Stretch with Foot on Ground - 1-2 x daily - 7 x weekly - 60 seconds hold - Supine Figure 4 Piriformis Stretch - 1-2 x daily - 7 x weekly - 60 seconds hold - Standing Quad Stretch with Table and Chair Support - 1-2 x daily - 7 x weekly - 60 seconds hold Objective Patient Instructed in Risks/Benefits Yes Therapeutic Exercise Therapeutic Exercise Minutes (minutes) 45 Therapeutic Exercise: To Restore Bike - 6 minutes, level 7 Functional Status Leg Press, seat 10, 30# x 10, 40# x 10, 60# x 10, 80# x 10 Hamstring curl machine, 30# x 10 50# 2 x 10 Knee extension machine, 50# 3 x 10 lumbar extension 60# x 10, 65# x 10, 70# x 10 Supine piriformis stretch x 60 ea Standing hip flexor/quad stretch x 60 ea Supine trunk rotations 2 x 10 ea Seated lumbar flexion stretch x 90 Verbal review of HEP, progressions of resistance machines Treatment Minutes Timed Code Treatment Minutes 45 Total Treatment Time 45 Billing Units Therapeutic Exercise Units 3 Assessment/Impression Assessment/Impression Lara has shown some fair progress during her time in therapy although her symptoms of R LE weakness and occasional pain persist. Lara has found mobility and stretching exercises to be very helpful in regard to her thigh and low back pain and has been progressing her resistance on machines at the gym weekly. Today Lara and I had a long discussion regarding her symptoms and I feel it would be in her best interest to pursue either a facet or epidural steroid injection of the Right L4/5 level (see MRI). Pt agrees. Pt and I have agreed to continue physical therapy services with focus on continued progression of strength exercises as well as consistent performance of stretching and mobility techniques to help relieve pain when pt experiences a flare while she is cleaning or walking. Recommend continued PT services to address deficits and return pt to highest level of function. Primary Functional Limitations Standing, walking Plan of Care Physical Therapy Goals STG - To be completed in 2-3 weeks: 1. Pt will report reduction in R thigh pain by factor of two so that she may go for short walks with her for pleasure. 2. Pt will demo improved posture in standing with full R knee extension and reduced lean to L. PROGRESSING LTG - To be completed in 8 weeks: 1. Pt will be I with HEP so that she may I manage progression of symptoms. PROGRESSING 2. Pt will report ability to shop for groceries without needing to keep hands on grocery cart for pain reduction, so that she may shop with her with manageable level of pain. 3. Pt will demo 5/5 MMT for all hip motions bilaterally to provide greater stability to B hips in standing. Daily Plan of Care Continue per POC Recertification Information Initial Certification Date 10/04/24 Recertification Start Date 01/03/25 Recertification Due Date 04/03/25 Reasons to Continue Skilled Therapy PT services are medically necessary at this time to assist pt with continued mobility and stretching exercises to be performed for pain relief as well as gradual progression of resistance exercises to improve core and LE strength. Rehabilitation Potential Good Continued Plan of Care and Interventions Therapeutic exercise, neuromuscular re-education, self-care, manual therapy as needed Provider Signature Shows Agreement With POC & Medical Necessity Physician Comment/Change Comment or Changes Physician NPI Number #
== END 2025-06-15 09:01 | disposition home or self-care (01) ==
PROVIDERS: PCP Physician Assistant Medical; Visit Provider Physician Assistant Medical
DX: H81.11 Benign paroxysmal vertigo, right ear (principal); M48.061 Spinal stenosis, lumbar region without neurogenic claudication; M79.651 Pain in right thigh; M25.551 Pain in right hip; M25.561 Pain in right knee; M54.16 Radiculopathy, lumbar region; Z51.89 Encounter for other specified aftercare
CPT/HCPCS: 36415; 82306; 82728; 84443; 97012; 97032; 97110; 97116; 97140; 97161; 97162

== ENCOUNTER 2025-05-07 07:43 | Outpatient (CLI) | payer MEDICARE, OTHER, SELFPAY | END 2025-05-07 07:44 | disposition home or self-care (01) | PROVIDERS: PCP Physician Assistant Medical; Visit Provider Family Medicine | DX: R19.7 Diarrhea, unspecified (principal) | CPT/HCPCS: 87045; 87046; 87177; 87209; 87427 ==

== ENCOUNTER 2025-05-16 09:58 | Outpatient (CLI) | payer MEDICARE, OTHER, SELFPAY ==
--- NOTE | 2025-05-16 10:15 | CRLHL7_ITS ---
For Patients: As a result of the Century Cures Act, medical imaging exams and procedure reports are released immediately into your electronic medical record. You may view this report before your referring provider. If you have questions, please contact your health care provider. INDICATION: Lumbar spondylosis. TECHNIQUE : Lumbar spine MRI without contrast. COMPARISON: Lumbar spine MRI from 11/01/2024. FINDINGS : Five lumbar type vertebral bodies, with the last fully formed disc space designated as L5-S1. Normal lumbar lordotic curve. No recent compression fracture or marrow replacing process. Lower cord/conus signal is normal. The conus terminates at a normal location. No intradural lesion. No extraspinal soft tissue abnormalities. Discs/Endplates: Advanced disc height loss disc desiccation and endplate remodeling at L3-4 on the left and L4-5 on the right. Mild disc degeneration elsewhere. Type 1 Modic changes also at L3-4 on the left and L4-5 on the right. Type 2 Modic changes also at L4-5 on the right. Findings at individual levels as follows: Imaged lower thoracic levels and L1-2: No spinal canal or neural foraminal stenosis. L2-3: Mild disc bulge. Bilateral low-grade facet arthrosis. Mild left neural foraminal stenosis. No right neural foraminal stenosis or spinal canal stenosis. L3-4: Moderate disc osteophyte complex. Bilateral facet arthrosis. Mild spinal canal stenosis. Mild left neural foraminal stenosis. No right neuroforaminal stenosis. L4-5: Trace anterolisthesis. Moderate disc osteophyte complex, asymmetric to the right. Bilateral low-grade facet arthrosis. Mild right neural foraminal stenosis. No left neural foraminal stenosis or spinal canal stenosis. L5-S1: Trace anterolisthesis. Shallow central protrusion. No spinal canal or neural foraminal stenosis. Imaged SI joints: Within normal limits. Imaged sacrum: Within normal limits. IMPRESSION: 1. No acute fracture or marrow replacing process. 2. Scattered lumbar spondylosis without high-grade spinal canal/neural foraminal stenosis or compression of neural structures. 3. Disc degeneration most prominent at the lower lumbar levels, with type 1 Modic changes at L3-4 on the left and L4-5 on the right. Dictated by Gus Peres MD @ 05/17/2025 1:30:20 PM (Electronically Signed)
== END 2025-05-16 09:59 | disposition home or self-care (01) ==
LOC: MRI 09:59
PROVIDERS: PCP Physician Assistant Medical; Visit Provider Family Medicine
DX: M47.816 Spondylosis without myelopathy or radiculopathy, lumbar region (principal); M51.26 Other intervertebral disc displacement, lumbar region; M54.17 Radiculopathy, lumbosacral region
CPT/HCPCS: 72148

== ENCOUNTER 2025-06-25 11:01 | Emergency (ER) | payer MEDICARE, OTHER, SELFPAY ==
--- OUTSIDE RECORDS SUMMARY | 2024-05-20 04:00 | XMS_ITS ---
Author Organization [facility] Address [address] [place] [address] Care Team Providers Care Braille Operator Name Role Phone Migration, Provider Unavailable Unavailable REASON FOR VISIT EMR-Spencer Encounters Encounter Location Date Provider Diagnosis [facility] [address] [place] [address] 05/20/2024 Provider Migration Plan Of Treatment No Information Progress Notes * REYES ANDERSONDOB:1945 (79 yo F)Acc No.[id number]:05/20/2024 Patient: Bautista REYES UNDERWOOD :1945 A ge:78 Y S ex:Female Phone: Address:[address] [place] [address], [id number] Subjective: * Chief Complaints: * E MR-Spencer * Medical History: * Surgical History: * Hospitalization/Major Diagno stic Procedure: * Medications: Objective: * Vitals: * Physical Examination: Assessment: Plan: * Treatment: * Procedure Codes: * * Date:
--- OUTSIDE RECORDS SUMMARY | 2024-05-21 04:00 | XMS_ITS ---
Author Organization [facility] Address [address] [facility] [address] [place] [address] Care Team Providers Care Investment Banker Name Role Phone Migration, Provider Unavailable Unavailable Allergies Allergen (clinical drug ingredient) Drug/Non Drug Allergy documented on EMR Reaction Allergy Type Onset Date Status Neosporin Unknown Drug Allergy Active Adhesive Unknown Allergy Active Latex Latex Unknown Allergy Active Substance with penicillin structure and antibacterial mechanism of action (substance) Penicillins Unknown Drug Allergy Active REASON FOR VISIT EMR-Spencer Medications Medication SIG (Take, Route, Frequency, Duration) Notes Start Date End Date Status Iron 325 (65 Fe) MG Oral 01/03/2020 Active Multi-Vitamin Oral 01/03/2020 Activ e Citalopram Hydrobromide 10 MG Oral 01/03/2020 Active Encounters Encounter Location Date Provider Diagnosis [facility] [address] [facility] [address] [place] [address] 05/21/2024 Provider Migration Plan Of Treatment No Information Progress Notes * REYES ANDERSONDOB:1945 (79 yo F)Acc No.[id number]:05/21/2024 Patient: Bautista REYES UNDERWOOD :1945 A ge:78 Y S ex:Female Phone: Address:[address] [place] [address], [id number] Subjective: * Chief Complaints: * E MR-Spencer * Medical History: * Surgical History: * Hospitalization/Major Diagno stic Procedure: * Social History: M igrated Social History: M igrated Social History: Patient States his(her) social history: Drinking Status: NO Smoking status:Never smoker; Illegal drugs use:No. * Medications: T akingIron 325 (65 Fe) MG Tablet Oral Citalopram Hydrobromide 10 MG Tablet Oral Multi-Vitamin Tablet Oral Taking Iron 325 (65 Fe) MG Tablet Oral Taking Citalopram Hydrobromide 10 MG Tablet Oral Taking Multi-Vitamin Tablet Oral * Allergies: N eosporin: Allergy - Criticality UnknownAdhesive: Allergy - Criticality UnknownLatex: Allergy - Criticality UnknownPenicillins: Allergy - Criticality Unknown Objective: * Vitals: * Physical Examination: Assessment: Plan: * Treatment: * Procedure Codes: * * Date:
--- OUTSIDE RECORDS SUMMARY | 2025-06-25 11:04 | XMS_ITS | Patient Health Record ---
Author Organization [facility] Address [address] [place] [address] Support Name Relationship Address Phone DAINA ANDERSON Emergency Contact Unknown [phone] REYES ANDERSON Guarantor Unknown Unavailable Reason For Referral No Information Medications Medication SIG (Take, Route, Frequency, Duration) Notes Start Date End Date Status Iron 325 (65 Fe) MG Oral 01/03/2020 Active Multi-Vitamin Oral 01/03/2020 Activ e Citalopram Hydrobromide 10 MG Oral 01/03/2020 Active Plan Of Treatment No Information Insurance Providers Payer Name Payer Address Payer Phone Subscriber Number Group Number Insured Name Patient Relationship to Insured Coverage Start Date Coverage End Date Medicare [address] SANDRA MILLER [id number] REYES ANDERSON Self - patient is the insured 0 0 [facility] [address] [address] [place]DR[place] Mcmullen [id number] REYES ANDERSON Self - patient is the insured 0 0
--- OUTSIDE RECORDS SUMMARY | 2025-06-25 11:04 | XMS_ITS | Clinical Summary ---
Author Organization [facility] Address [address] [place] [id number] Care Team Providers Care Cyber Crime Investigator Name Role Phone Brianna Ball PA-C Primary Care Provider [phone] Allergies Active Allergy Reactions Criticality Noted Date Comments Adhesive Rash 06/11/2025 Adhesive Tape-Silicones Itching,Edema,Erythem a 07/20/2024 Latex Itching,Rash Low 07/20/2024 Omeprazole Itching,Rash Low 05/01/2024 blisters per patient Penicillins Angioedema High 06/14/2023 SWELLING IN BODY Has tolerated Ancef 2023 Sutures *Unknown 07/20/2024 07/20/24: With C-sections, allergic to sutures at that times, has had sutures since that time with no issues. Medications multivitamin (MVI) tablet Take 1 Tablet by mouth once daily. Active cholecalciferol (Vitamin D-3) 2,000 unit capsule Take 2,000 units by mouth once daily. Active pyridoxine, vitamin B6, (Vitamin B-6) 100 mg tablet Take 100 mg by mouth once daily. Active cyanocobalamin (Vitamin B-12) 500 mcg tablet Take 500 mcg by mouth once daily. Active acetaminophen (TYLENOL EXTRA STRGTH) 500 mg tabletIndications :Gastric volvulus,Paraesop hageal hernia Take 2 Tablets (1,000 mg) by mouth every 6 hours if needed for Pain (For mild pain 1st choice. May take either Tylenol tablet or liquid, if both ordered.). Max acetaminophen dose: 4000mg in 24 hrs. 07/21/20 24 Active sertraline (ZOLOFT) 50 mg tablet Take 50 mg by mouth once daily in the morning. 12/28/19 25 Active gabapentin (NEURONTIN) 300 mg capsule Take 300 mg by mouth two times daily. Active loratadine (Claritin) 10 mg tablet Take 10 mg by mouth once daily if needed. Active ketoconazole 2% shampoo (NIZORAL) 2 % shampoo Apply topically to affected area(s). Twice weekly 12/28/19 25 Active meclizine (ANTIVERT) 12.5 mg tablet Take 12.5 mg by mouth 3 times daily if needed. 12/31/19 24 Active docusate (COLACE) 100 mg capsule Take 100 mg by mouth once daily. Active Patients Unique Medication From Home Take 1 Each by mouth two times daily. Vivisical for hair growth Active oxyCODONE (ROXICODONE) 5 mg immediate release tabletIndications :Postoperative pain after spinal surgery Take 2 Tablets (10 mg) by mouth every 6 hours if needed for Pain. 35 Tablet 5 9:33 AM CDT 06/14/20 25 Active docusate (COLACE) 100 mg capsuleIndication s:Postoperative pain after spinal surgery Take 1 Capsule (100 mg) by mouth two times daily for 14 days. 28 Capsule 5 9:33 AM CDT 06/14/20 25 025 Active ondansetron (ZOFRAN ODT) 8 mg disintegrating tabletIndications :Postoperative pain after spinal surgery Place 1 Tablet (8 mg) on the tongue every 8 hours if needed for Nausea/Vomiting. 20 Tablet 5 9:33 AM CDT 06/14/20 25 Active WalkerIndications :Postoperative pain after spinal surgery Walker with front wheels for home use for 3 months. 1 Each 06/14/20 25 Active sennosides-docusa te (SENOKOT S) (8.6-50 mg) tabletIndications :Postoperative pain after spinal surgery Take 2 Tablets by mouth two times daily. 30 Tablet 5 6:04 PM CDT 06/14/20 25 Active polyethylene glycoL (MIRALAX) 17 gram/scoop powderIndications :Postoperative pain after spinal surgery Take 1 scoop (17 g) by mouth or nasogastric tube once daily if needed for Constipation. 238 g 06/14/20 25 Active gabapentin (NEURONTIN) 300 mg capsuleIndication s:Night sweats Take 1 Capsule (300 mg) by mouth once daily. At bedtime for night sweats 90 Capsule 06/09/20 24 025 Discontin ued(Other - add note to specify (E-cancel not sent)) ibuprofen (ADVIL; MOTRIN) 200 mg tablet Take 200-600 mg by mouth every 6 hours if needed. 025 Discontin ued(Other - add note to specify (E-cancel not sent)) celecoxib 200 mg capsuleIndication s:Lumbar spondylosis,Prima ry osteoarthritis of right hip TAKE 1 CAPSULE(200 MG) BY MOUTH TWICE DAILY WITH MEALS 60 Capsule 1 04/16/20 25 025 Discontin ued(Other - add note to specify (E-cancel not sent)) meloxicam 7.5 mg tabletIndications :Lumbosacral radiculopathy at L4 TAKE 1 TABLET(7.5 MG) BY MOUTH DAILY 30 Tablet 1 05/23/20 25 025 Discontin ued(*IP Discontin ued) ferrous gluconate 324 mg (37.5 mg iron) tablet Take 324 mg by mouth once daily with a meal. 025 Discontin ued(Other - add note to specify (E-cancel not sent)) methocarbamoL 750 mg tabletIndications :Postoperative pain after spinal surgery Take 1 Tablet (750 mg) by mouth four times daily for 5 days. 20 Tablet 5 9:33 AM CDT 06/14/20 25 025 Active Problems Problem Noted Date Diagnosed Date Spinal stenosis of lumbar re gion with neurogenic claudication 06/12/2025 Anxiety 06/12/2025 Iron deficiency anemia 06/12/2025 White coat syndrome without diagnosis of hyperte nsion 06/12/2025 Paraesophageal hernia 07/21/2024 Gastric volvulus 07/21/2024 Encounters Date Type Department Care Team Description 06/12/2025 11:20 AM CDT Anesthesia Event [facility] [address] [place] [address] Trey Arias MD Anderson, Adwoa Santiago MD 06/12/2025 10:13 AM CDT - 06/12/2025 3:41 PM CDT Surgery [facility] [address] [place] [address] Von Kenney MD Decompression - Transfacet/Transforami nal L3 to: L5 Posterior Spine Fusion with Instrumentation L3 to: L5 Transforaminal Lumbar Interbody Fusion L4 to: L5 06/12/2025 9:44 AM CDT - 06/14/2025 6:37 PM CDT Hospital Encounter [facility] [address] [place] [address] Von Kenney MD Postoperative pain after spinal surgery (Primary Dx) Discharge Disposition: Home Self Care 06/12/2025 Travel 05/22/2025 Refill [facility] [address] [place] [address] Kaushal Sorensen MD Refill Request (Meloxicam) 05/21/2025 Telephone [facility] [address] [place] [address] Kaushal Sorensen MD Questions 05/18/2025 11:00 AM CDT Ancillary Procedure [facility] [place] [address] [place] [address] 05/18/2025 Orders Only [facility] [address] [place] [address] Kaushal Sorensen MD 1 scan: (1-Ord) [facility], MR LUMBAR SPINE WO CON, 05/16/2025 05/18/2025 Orders Only [facility] [address] [place] [address] Brittni Garay PA <No scans attached> 05/10/2025 Telephone [facility] [address] [place] [id number] Brianna Ball, PA-C questions (questions) 05/03/2025 Telephone [facility] [address] [place] [address] Kaushal Sorensen MD Follow Up 04/26/2025 Telephone [facility] [address] [place] [address] Kaushal Sorensen MD Results (lab) 04/25/2025 11:15 AM CDT Orders Only [facility] [address] [facility] [facility] [place] [address] Lab, [facility] 04/25/2025 Telephone [facility] [address] [place] [address] Kaushal Sorensen MD OTHER (FYI on Injection) 04/24/2025 Travel 04/15/2025 Refill [facility] [address] [place] [address] Kaushal Sorensen MD Refill Request (Celecoxib) 04/15/2025 Refill [facility] [address] [place] [address] Kaushal Sorensen MD Refill Request (Celecoxib) 04/10/2025 7:40 AM CDT Office Visit [facility] at [facility] [address] [place] [id number] Kaushal Sorensen MD Procedure (Right L4-5 TFESI) from Last 3 Months Immunizations Immunization Administration Dates Next Due Influenza, High-dose Inactivated [...] 0 06/14/2023 Social Connections Answer Date Recorded Do you often feel lonely or isolated from those around you? 0 06/13/2025 Financial Resource Strain Answer Date R ecorded Difficulty of Paying Living Expenses 3 06/13/2025 Difficulty of Paying Living Expenses Not on file 06/13/2025 Food Insecurity Answer Date Recorded Do you worry your food will run out before you are able to buy more? 1 06/13/2025 Transportation Needs Answer Date Record ed Does lack of transportation keep you from medica l appointments? 1 06/13/2025 Does lack of transportation keep you from work, meetings or getting things that you need? 1 06/13/2025 Housing Stability Answer Date Recorded What is your housing situation today? 1 06/13/2025 Interpersonal Safety Answer Date Record ed Are you being hit, kicked, p ushed or yelled at (see row info)? No 06/13/2025 Interpersonal Safety Abuse 12 - 18 Not on file 06/13/2025 Interpersonal Safety Ambulatory Vulnerability No t on file 06/13/2025 Utilities Answer Date Recorded Do you have trouble paying f or utilities (for example, heat, electricity, water, phone)? 1 06/13/2025 Comments No Sex and Gender Information Value [...] Sign Reading Time Taken Comments Blood Pressure 160/75 06/14/2025 8:13 AM CDT Pulse 87 06/14/2025 8:13 AM CDT Temperature 36.5 C (97.7 F) 06/14/2025 8:13 AM CDT Respiratory Rate 16 06/14/2025 8:13 AM CDT Oxygen Saturation 97% 06/14/2025 8:13 AM CDT Inhaled Oxygen Concentration - - Weight 80 kg (176 lb 6.4 oz) 06/12/2025 10:18 AM CDT Height 166.4 cm (5' 5.5) 06/12/2025 10:18 AM CD T Body Mass Index 28.91 06/12/2025 10:18 AM CDT Plan of Treatment Health Maintenance Due Date Last Done Comments Hepatitis C screening for age 18-79 1965 Pneumococcal series for age 50+ (1 of 1 - PCV) 1997 DEXA/DXA scan for age 65+ 2012 Medicare Wellness for age 65+ 2012 RSV vaccine for adults or (1 - 1-dose 75+ series) 2022 Depression screening for age 12+ 06/14/2024 06/14/2023 COVID-19 vaccine series ( season) 2025 10/03/2024, 10/15/2023, 09/11/2022, Additional history exists Influenza Vaccine (#1) 2025 , 09/16/2020, 09/04/2019, Additional history exists BMI (ht and wt on same day) for age 18+ 08/02/2025 08/02/2024 Tetanus booster 04/19/2028 04/19/2018 Zoster (shingles) series for age 50+ Completed 08/17/2019, 04/04/2019 Hepatitis B series for 19+ Aged Out N o longer eligible based on patient's age to complete this topic Medical Devices Implanted Type Area Intake Counselor Device Identifier Shelf Expiration Date Model / Serial / Lot Bone 1-4mm 60cc Medtronic Fine Canclls Freeze Dried - [id number] Implanted:Qty: 1 on 06/12/2025 by Von Kenney MD at [facility] N/A: Spine Medtronic Spine/Ortho [id number] 09/14/2028 [id number] / [id number] / Bone Matrix 6cc Gilbert Dbf Putty Dbm - [id number] Implanted:Qty: 1 on 06/12/2025 by Von Kenney MD at [facility] N/A: Spine Medtronic Spine/Ortho [id number] 12/21/2026 [id number] / [id number] / Spacer Lmbr 9x22mm Capstone Tlif Peek - [id number] Implanted:Qty: 1 on 06/12/2025 by Von Kenney MD at [facility] N/A: Spine Medtronic Spine/Ortho 05/21/2031 [id number] / / 96PH Set Screw Lmbr Ant 5.5mm Solera Break Off - [id number] Implanted:Qty: 6 on 06/12/2025 by Von Kenney MD at [facility] N/A: Spine Medtronic Spine/Ortho [id number] / / Saleem Lmbr 60x5.5mm Solera 5.5/6 Cvd Titnm - [id number] Implanted:Qty: 1 on 06/12/2025 by Von Kenney MD at [facility] N/A: Spine Medtronic Spine/Ortho [id number] / / Saleem Lmbr 70x5.5mm Solera 5.5/6 Cvd Titnm - [id number] Implanted:Qty: 1 on 06/12/2025 by Von Kenney MD at [facility] N/A: Spine Medtronic Spine/Ortho [id number] / / Screw Lmbr Post 6.5x45mm Solera 5.5/6 Va Cocr - [id number] Implanted:Qty: 6 on 06/12/2025 by Von Kenney MD at [facility] N/A: Spine Medtronic Spine/Ortho [id number] / / Procedures Procedure Name Priority Date/Time Associated Diagnosis Comments HEMOGLOBIN Early AM 06/13/2025 7:07 AM CDT BASIC METABOLIC PANEL Early AM 06/13/2025 7:07 AM CDT XR SPINE LUMBAR 2 VIEWS PORTABLE Routine 06/12/2025 1:02 PM CDT XR SPINE 1 VIEW PORTABLE Routine 06/12/2025 12:02 PM CDT ENDOTRACHEAL TUBE Routine 06/12/2025 11:54 AM CDT ENDOTRACHEAL TUBE Routine 06/12/2025 11:54 AM CDT DECOMPRESSION SPINE LEVEL 02 Tier 2: within 30 days 06/12/2025 10:50 AM CDT 1) Stenosis, Lumbar - w/Neurogenic Claudication M48.0622) Degenerative Scoliosis, Lumbar M41.56 Case Notes LATEX ALLERGYC_ArmCell SaverJackson Combo Solera 5.5/6.0MR FUSION POSTERIOR SPINE LEVEL 02 Tier 2: within 30 days 06/12/2025 10:50 AM CDT 1) Stenosis, Lumbar - w/Neurogenic Claudication M48.0622) Degenerative Scoliosis, Lumbar M41.56 Case Notes LATEX ALLERGYC_ArmCell SaverJackson Combo Solera 5.5/6.0MR FUSION TRANSFORAMINAL SPINAL INTERBODY LEVEL 1 Tier 2: within 30 days 06/12/2025 10:50 AM CDT 1) Stenosis, Lumbar - w/Neurogenic Claudication M48.0622) Degenerative Scoliosis, Lumbar M41.56 Case Notes LATEX ALLERGYC_ArmCell SaverJackson Combo Solera 5.5/6.0MR GLUCOSE METER Timed 06/12/2025 10:21 AM CDT SCAN-OPERATIVE/PROCE DURE REPORT 06/12/2025 12:00 AM CDT XR SPINE STANDING SCOLIOSIS 2 TO 3 VIEW Routine 05/18/2025 10:56 AM CDT Chronic right-sided low back pain with right-sided sciatica MR SPINE LUMBAR WO Routine 05/16/2025 12:00 AM CDT Lumbar spondylosis Lumbosacral radiculopathy at L4 Lumbar disc herniation BASIC METABOLIC PANEL Routine 04/25/2025 11:09 AM CDT Therapeutic drug monitoring AMB EPIDURAL STEROID INJECTION Routine 04/10/2025 12:00 AM CDT Lumbosacral radiculopathy at L4 Lumbar disc herniation from Last 3 Months Results * Hemoglobin AM (06/13/2025 7:07 AM CDT) HEMOGLOBIN 12.5 12.0 - 16.0 g/dL 06/13/2025 7:29 AM CDT [facility] MCV 92 80 - 100 fL 06/13/2025 7:29 AM CDT [facility] Blood BLOOD SPECIMEN / Unknown Venipuncture / Unknown 06/13/2025 7:07 AM CDT 06/13/2025 7:21 AM CDT Prisca Callahan DO HEMATOLOGY Final Re sult [facility] [address] [place] [address], * (ABNORMAL) Basic metabolic panel AM (06/13/2025 7:07 AM CDT) Only the most recent of2 resultswithin the time period is included. Pathologist [facility] SODIUM 141 136 - 145 mmol/L 06/13/2025 7:52 AM CDT [facility] POTASSIUM 4.7 3.5 - 5.1 mmol/L 06/13/2025 7:52 AM T [facility] CHLORIDE 107 98 - 107 mmol/L 06/13/2025 7:52 AM [facility] CO2,TOTAL 23 22 - 29 mmol/L 06/13/2025 7:52 AM T [facility] ANION GAP 11 5 - 18 06/13/2025 7:52 AM [facility] GLUCOSE 120(H) 70 - 99 mg/dL 06/13/2025 7:52 AM T [facility] CALCIUM 8.1(L) 8.8 - 10.4 mg/dL 06/13/2025 7:52 AM [facility] Comment: Reference ranges for this test were updated on 10/03/2024 to reflect our healthy population more accurately. Reference range changes are not retroactively applied to results, but previous results using the same methodology can be interpreted in the context of the new reference range. BUN 14 8 - 23 mg/dL 06/13/2025 7:52 AM CDT [facility] CREATININE 0.88 0.50 - 0.90 mg/dL 06/13/2025 7:52 AM CDT [facility] BUN/CREAT RATIO 16 10 - 20 7:52 AM CDT [facility] eGFR 68(L) >90 mL/min/1. 73m2 06/13/2025 7:52 AM CDT [facility] Comment:As of 2022, eG FR is calculated by the CKD-EPI creatinine equation without race adjustment. eGFR can be influenced by muscle mass, exercise, and diet. The reported eGFR is an estimation only and is only applicable if the renal function is stable. Blood BLOOD SPECIMEN / Unknown Venipuncture / Unknown 06/13/2025 7:07 AM CDT 06/13/2025 7:22 AM CDT Prisca Callahan DO CHEMISTRY Final Re sult [facility] [address] [place] [address], [place] * XR SPINE LUMBAR 2 VIEWS PORTABLE (06/12/2025 1:02 PM CDT) Anatomical Region Laterality Modality Spine, LUMBAR SPINE Digital Radi ography 06/12/2025 1:53 PM CDT Narrative 06/12/2025 1:53 PM CDT For Patients: As a result of the 21st Century Cures Act, medical imaging exams and procedure reports are released immediately into your electronic medical record. You may view this report before your referring provider. If you have questions, please contact your health care provider. INDICATION : Spinal localization. Decompression - Transfacet/Transforaminal L3-L5, Posterior Spine Fusion L3-L5, Transforaminal Lumbar Interbody Fusion L3-L5 TECHNIQUE : Two portable views of the lumbar spine FINDINGS/IMPRESSION: Posterior transpedicular screws bilaterally from L3-L5, with interbody spacer at L4-5. Dictated by Gabbie Drake MD @ Jun 12 2025 1:53PM (Electronically Signed) [email or web address] Procedure Note Gabbie Drake DO - 06/12/2025 For Patients: As a result of the s Act, medical imagingexams and procedure reports are released immediately into your electronicmedical record. You may view this report before your referring provider.If you have questions, please contact your health care provider. INDICATION : Spinal localization. Decompression - Transfacet/Transforaminal L3-L5, Posterior Spine Fusion L3-L5, Transforaminal Lumbar Interbody Fusion L3-L5 TECHNIQUE : Two portable views of the lumbar spine FINDINGS/IMPRESSION: Posterior transpedicular screws bilaterally from L3-L5, with interbodyspacer at L4-5. Dictated by Gabbie Drake MD @ Jun 12 2025 1:53PM (Electronically Signed) [email or web address] Von Kenney MD GENERAL IMAGING Final Resul t * XR SPINE 1 VIEW PORTABLE (06/12/2025 12:02 PM CDT) Anatomical Region Laterality Modality Spine, CERVICAL SPINE, THORACIC SPINE, LUMBAR SP INE Digital Radiography 06/12/2025 1:39 PM CDT Narrative 06/12/2025 1:39 PM CDT For Patients: As a result of the s , medical imaging exams and procedure reports are released immediately into your electronic medical record. You may view this report before your referring provider. If you have questions, please contact your health care provider. INDICATION: Spine localization. TECHNIQUE: Lumbar spine 1 view. COMPARISON: None. FINDINGS/IMPRESSION: Spine localization hardware is located at the posterior element of L3. Dictated by Leydi Ball MD @ Jun 12 2025 1:39PM (Electronically Signed) [email or web address] Procedure Note Leydi Ball MD - 06/12/2025 For Patients: As a result of the s , medical imagingexams and procedure reports are released immediately into your electronicmedical record. You may view this report before your referring provider.If you have questions, please contact your health care provider. INDICATION: Spine localization. TECHNIQUE: Lumbar spine 1 view. COMPARISON: None. FINDINGS/IMPRESSION: Spine localization hardware is located at the posterior element of L3. Dictated by Leydi Ball MD @ Jun 12 2025 1:39PM (Electronically Signed) [email or web address] us oVn Kenney MD GENERAL IMAGING Final Resul t * HCHG TUBE PR1, HCHG STYLET PR1 (06/12/2025 11:54 AM CDT) Narrative Ezequiel Miranda CRNA - 06/12/2025 11:54 AM CDT Ezequiel Miranda CRNA 06/12/2025 11:55 AM Procedure: ETT Patient location during procedure: OR ETT Properties Mask Ventilation: easy Final Technique: direct laryngoscopy Type: straight Location: oral Cuffed: yes Tube Size: 7.0 mm Stylet: yes Blade Size: 2 Cormack-Lehane Grade View: 1 Insertion Attempts: 1 Placement Verification: auscultation, end tidal CO2 and symmetrical chest wall movement Assessment: pharynx clear, atraumatic and dentition unchanged Secured at: 22 Measured From: lips Trey Arias MD ANESTHESIA PX NOTE ORDERABLES Final Result * (ABNORMAL) GLUCOSE METER (06/12/2025 10:21 AM CDT) GLUCOSE METER 102(H) 65 - 100 mg/dL 06/13/2025 5:39 AM CDT [facility] [employer] [facility] Blood BLOOD SPECIMEN / Unknown 06/12/2025 10:21 AM CDT 06/13/2025 5:39 AM CDT Von Kenney MD CHEMISTRY Final Resul t [facility] [address] [place] [address], * SCAN-OPERATIVE/PROCEDURE REPORT (06/12/2025 12:00 AM CDT) Narrative 06/12/2025 12:00 AM CDT Ordered by an unspecified provider. us Other Clinical Staff OTHER Final Resul t * XR SPINE STANDING SCOLIOSIS 2 TO 3 VIEW (05/18/2025 10:56 AM CDT) Anatomical Region Laterality Modality CERVICAL SPINE, THORACIC SPINE, LUMBAR SPINE, Sp ine Digital Radiography 05/21/2025 11:3 1 AM CDT Narrative 05/21/2025 11:31 AM CDT For Patients: As a result of the Cures Act, medical imaging exams and procedure reports are released immediately into your electronic medical record. You may view this report before your referring provider. If you have questions, please contact your health care provider. Indication: Chronic right-sided low back pain with right-sided sciatica. Technique: Standing AP and lateral views of the spine (scoliosis series). Comparison: None. Findings: Scoliosis of the lumbar spine, apex to the left with a Martin angle of 18 degrees. Scoliosis of the lumbar spine, apex to the right with a Martin angle of 26 degrees. Degenerative disc disease throughout the cervical, thoracic and lumbar spine. No fracture or subluxation. Unremarkable cardiomediastinal silhouette and pulmonary vasculature. Clear lungs. Unremarkable bowel gas pattern. Impression: Scoliosis and degenerative spondylosis of the thoracic and lumbar spine. Dictated by Jose Alfredo Osullivan MD @ 05/21/2025 11:31:00 AM (Electronically Signed) Procedure Note Jose Alfredo Osullivan MD - 05/21/2025 For Patients: As a result of the Cures Act, medical imagingexams and procedure reports are released immediately into your electronicmedical record. You may view this report before your referring provider.If you have questions, please contact your health care provider. Indication: Chronic right-sided low back pain with right-sided sciatica. Technique: Standing AP and lateral views of the spine (scoliosis series). Comparison: None. Findings: Scoliosis of the lumbar spine, apex to the left with a Martin angle of 18degrees. Scoliosis of the lumbar spine, apex to the right with a Martin angle of 26degrees. Degenerative disc disease throughout the cervical, thoracic and lumbarspine. No fracture or subluxation. Unremarkable cardiomediastinal silhouette and pulmonary vasculature. Clearlungs. Unremarkable bowel gas pattern. Impression: Scoliosis and degenerative spondylosis of the thoracic and lumbar spine. 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 Healthcare Directive 05/05/2024 024 * Full Code (Latest Code Status on File) Date Activated Date Inactivated Comments 06/14/2025 6:36 AM 06/14/2025 9:03 PM Question Answer Comments Code Status Discussion: Reviewed Preferences * Full Code Date Activated Date Inactivated Comments 07/21/2024 10:11 AM 07/21/2024 8:18 PM Question Answer Comments Code Status Discussion: Unable to Assess Preferences, Provider to review later Care Teams Cyber Crime Investigator Relationship Specialty Start Date End Date Brianna Ball PA-C [address] [place] [id number] PCP - General Physician Optical Glass Inspector 03/08/23
--- OUTSIDE RECORDS SUMMARY | 2025-06-25 11:04 | XMS_ITS | Clinical Summary ---
[facility] Address [address], [place] [address] Care Team Providers Care Retail Loss Prevention Investigator Name Role Phone Unavailable Primary Care Provider Unavailabl e Source Comments You are receiving this document as you are listed as the primary care provider,follow-up provider, or the patient has been referred to you for consultation.This is in compliance with the Medicare and[facility] EHR Incentive Program,which states Providers who transition their patient to another setting of careor provider of care or refers their patient to another provider of care shouldprovide summary care record for each transition of care or referral. [employer] Allergies Active Allergy Reactions Criticality Noted Date Comments Penicillins Other, see comments 01/06/2022 Medications hydrocortisone valerate (WESTCORT) 0.2 % ointment Apply a thin layer to affected skin twice a day as needed for rash 45 g 2 01/06/2022 Active Active Problems No known active problems Social History Tobacco Use Types Packs/Day Years Used Date Smoking Tobacco: Never Assessed Comments Unknown Sex and Gender Information Value Date Recorded Sex Assigned at Not on file Legal Sex Female 11:15 AM CDT Gender Identity Not on file Sexual Orientation Not on file Plan of Treatment Health Maintenance Due Date Last Done Comments Hep C Screening (Preventive Services) 1945 Medicare Annual Wellness Visit 1945 Pneumococcal Vaccine 50+ Yrs (1 of 1 - PCV) 1997 Dexa 2012 DTaP/Tdap/Td Vaccine (1 - Tdap) 04/20/2018 04/19/2018 RSV Vaccine (1 - 1-dose 75+ series) 2022 COVID-19 Vaccine (4 - 2023- season) 2024 09/24/2021, 02/08/2021, 01/18/2021 Influenza Vaccine (#1) 2025 , 09/16/2020, 09/04/2019, Additional history exists Zoster/Shingles Vaccine Completed 08/17/2019, 04/04 HepA Vaccine Aged Out No longer eligi ble based on patient's age to complete this topic HepB Vaccine Aged Out No longer eligi ble based on patient's age to complete this topic Hib Vaccine Aged Out No longer eligi ble based on patient's age to complete this topic IPV (Polio) Vaccine Aged Out No longe r eligible based on patient's age to complete this topic MCV4 Vaccine Aged Out No longer eligi ble based on patient's age to complete this topic Meningococcal B Vaccine Aged Out No l onger eligible based on patient's age to complete this topic Insurance MEDICARE MEDICARE [facility]
--- OUTSIDE RECORDS SUMMARY | 2025-06-25 11:04 | XMS_ITS | Clinical Summary ---
Author Organization [facility] Address [address] [place] [id number] Care Team Providers Care Medical Assistant Dermatology Name Role Phone No Ref-Primary, Physician Primary [...] on file Insurance MEDICARE COMMERCIAL Care Teams Medical Assistant Dermatology Relationship Specialty Start Date End Date No Ref-Primary, Physician PCP - General 04/19/18
[2025-06-25 11:12] VITALS: BP 193/71; PULSE 91; RESP 18; TEMP 36.4; O2SAT 99; BMI 29.3
[2025-06-25 13:27] VITALS: BP 168/98; PULSE 79; RESP 16; O2SAT 98
--- NOTE | 2025-06-25 13:30 | ED.GENADULT ---
HPI - General Adult General Time Seen by Provider: 13:31 Date Seen: 06/25/25 Chief complaint: Lower Extremity Swelling Stated complaint: inflammation on both legs after surgery- 06/12/2025 Time Seen by Provider: 06/25/25 13:22 Source: patient and RN notes reviewed Mode of arrival: ambulatory Limitations: no limitations History of Present Illness HPI narrative: This 79-year-old female is ambulatory into the ED with her walker with complaint of bilateral lower extremity swelling. She had lumbar fusion L3, L4-L5 on June 12. She started noticing swelling of her lower legs about 4 days ago. She feels her back is healing good. She does relay that she did have an incident the day she got home from the hospital, she was going down steps, her right foot slipped, she was hanging onto the railing but she did go down on her buttocks. She is not experiencing any pain going down her legs, has had sciatica before and this does not feel like it. By the end of the day the legs are more swollen, right greater than left. They will get achy at night, especially the right. Her surgeon was concerned about blood clots and did have her come in. She has noticed no shortness of breath, no chest pain, no fevers. She is still having some constipation for which she is using MiraLax and Colace. She last used oxycodone on the . She did use some ibuprofen last night due to her leg discomfort on the right side. She is not on any blood thinners. No numbness or tingling. She does states she has a history of swelling in the richards with the heat. Swelling is knees down to toes, worsens at night per patient and right leg is particularly achey at night with the swelling. Related Data Home Medications ?Medication ?Instructions ?Recorded ?Confirmed multivitamin (Multiple Vitamins 1 tab PO DAILY 07/03/22 06/25/25 tablet) viviscal PO 02/21/25 06/06/25 methocarbamol 750 mg tablet 750 mg PO Q6H 06/25/25 06/25/25 Previous Rx's ?Medication ?Instructions ?Recorded sertraline 50 mg tablet 50 mg PO QDAY #90 tabs 02/21/25 gabapentin 300 mg capsule 600 mg (2 x 300 mg) PO QPM #180 05/21/25 caps Allergies Allergy/AdvReac Type Severity Reaction Status Date / Time Penicillins Allergy Severe Verified 06/25/25 11:19 latex Allergy Mild Itch, rash Verified 06/25/25 11:19 omeprazole Allergy Mild Rash Verified 06/25/25 11:19 adhesive Allergy Unknown Redness, Verified 06/25/25 11:19 swelling, itching Sutures AdvReac Unknown Verified 06/25/25 11:19 Review of Systems Status of ROS: Reports: 6 or more systems reviewed and unremarkable except as noted in History and below [facility] Medical History Large hiatal hernia ?K44.9 - Diaphragmatic hernia without obstruction or gangrene (ICD-10) Health care directive on file ?Z78.9 - Other specified health status (ICD-10) Gallstone (impacted) ?K80.20 - Calculus of gallbladder without cholecystitis without obstruction (ICD-10) Bronchitis ?J40 - Bronchitis, not specified as acute or chronic (ICD-10) Benign paroxysmal positional vertigo ?H81.10 - Benign paroxysmal vertigo, unspecified ear (ICD-10) Viral URI with cough ?J06.9 - Acute upper respiratory infection, unspecified (ICD-10) Strain of neck muscle ?S16.1XXA - Strain of muscle, fascia and tendon at neck level, initial encounter (ICD-10) Neck pain of over 3 months duration ?M54.2 - Cervicalgia (ICD-10) Surgical History History of lumbar laminectomy for spinal cord decompression ?Z98.890 - Other specified postprocedural states (ICD-10) History of hernia repair ?Z98.890 - Other specified postprocedural states (ICD-10) ?Z87.19 - Personal history of other diseases of the digestive system (ICD-10) History of colonoscopy ?Z98.890 - Other specified postprocedural states (ICD-10) S/P arthroscopy of right shoulder (03/25/22) ?Z98.890 - Other specified postprocedural states (ICD-10) History of tonsillectomy ?Z90.89 - Acquired absence of other organs (ICD-10) History of foot surgery ?Z98.890 - Other specified postprocedural states (ICD-10) History of dilation and curettage ?Z98.890 - Other specified postprocedural states (ICD-10) History of section ?Z98.891 - History of uterine scar from previous surgery (ICD-10) Social History Narrative: Adopted What is your current living situation?: I presently have a place to live Problems where you live: no known problems In the past 12 months, utilities in danger of being shut off: no In past 12 months, lack of transportation kept you from medical appts, meetings, work, or getting things needed for daily living: no In the past 12 mos, have been you worried that your food would run out before you had money to buy more?: never true In the past 12 mos, the food you bought just didn't last and you didn't have money to buy more?: never true Smoking Status: Never smoker Do you use any of these nicotine containing products: None Second hand tobacco smoke exposure: No How often do you have a drink containing alcohol: never How often do you have six or more drinks on one occasion: Never AUDIT-C Alcohol total score: 0 Non-prescribed substance use: denies use Caffeine: Yes Are you now , , , , never or living with a partner: Social isolation score (0-1 are the most socially isolated patients): 1 How often does anyone, including family, friends and others, physically hurt you: never How often does anyone, including family, friends and others, insult or talk down to you: never How often does anyone, including family, friends and others, threaten you with harm: never How often does anyone, including family, friends and others, scream or curse at you: never Are you using contraception or practicing any form of control: No Exam Const: Vital Signs, click to edit/add: Vital Signs - 24 hr 06/25/25 11:12 06/25/25 13:27 Temperature 97.6 F Pulse Rate [Right Pulse Oximeter] 91 79 Respiratory Rate 18 16 Blood Pressure [Ri ght Upper Arm] 193/71 H 168/98 H Pulse Oximetry 99 98 Oxygen Delivery Me thod Room Air Room Air Lara is a 79-year-old female visualized walking with her walker back to exam room 7. She is alert, interactive, no apparent distress, able to speak in complete sentences. Neck supple, no noted jugular venous distension. Lungs clear, no tachypnea, no accessory muscle use. CV regular rate and rhythm, no murmur, normal S1-S2. She does have about 2 to 3+ pitting edema of both of her lower extremities along the anterior tibia, at least [address] her legs. This skin is warm dry, no discoloration, no erythema. She has 5/5 and symmetric strength in her lower extremities. Can do some straight leg raising but cannot hold it for significant amount of time on either side due to her back surgery in discomfort in her back. Neurovascular seems to be intact. Documenting provider has reviewed patient's vital signs: yes Course Course ED Course: We did discuss looking at a lumbar CT just to ensure no acute pathology given that she had a fall on the . She does agree with this. Will also do venous ultrasound of both her lower extremities. She does have compression stockings that she ordered online and should be coming. I think this is likely postoperative swelling of her lower extremities. She has no respiratory symptoms, do not think that this is cardiac. Will make sure that there is no thromboembolic disease with bilateral venous lower extremity ultrasounds. Reevaluation(s) Time of Reevaluation #1: 15:27 Reevaluation #1: Have reviewed with patient her lumbar CT report. There is a small seroma, we reviewed that this should resolve on its own. Should it become infected, I would anticipate she would have signs and symptoms of infection including fever. We reviewed that her ultrasounds on preliminary report per van driver are negative for DVT. She will not be getting her stockings for few days, she does have Fran wraps at home. We did discuss Fran wrapping, massaging. Vital Signs Vital signs: Initial Vital Signs Temperature 97.6 F 06/25/25 11:12 Temperature Source Temporal Artery Scan 06/25/25 11:12 Pulse Rate 91 06/25/25 11:12 Pulse Rhythm Regular 06/25/25 11:12 Pulse Strength 3+ Normal 06/25/25 11:12 Respiratory Rate 18 06/25/25 11:12 Blood Pressure 193/71 H 06/25/25 11:12 Blood Pressure Mean 111 H 06/25/25 11:12 Blood Pressure Position Sitting 06/25/25 11:12 Pulse Oximetry 99 06/25/25 11:12 Oxygen Delivery Method Room Air 06/25/25 11:12 Vital Signs Temperature 97.6 F 06/25/25 11:12 Pulse Rate 91 06/25/25 11:12 Respiratory Rate 18 06/25/25 11:12 Blood Pressure 193/71 H 06/25/25 11:12 Pulse Oximetry 99 06/25/25 11:12 Oxygen Delivery Method Room Air 06/25/25 11:12 Temperature 97.6 F 06/25/25 11:12 Pulse Rate 79 06/25/25 13:27 Respiratory Rate 16 06/25/25 13:27 Blood Pressure 168/98 H 06/25/25 13:27 Pulse Oximetry 98 06/25/25 13:27 Oxygen Delivery Method Room Air 06/25/25 13:27 Medical Decision Making Imaging Data CT lumbar spine: Attestation: I have reviewed the pertinent imaging results. Radiologist's impression: Patient: LARA ANDERSON Facility:?[facility] Patient ID:?[id number] Site Patient ID:?[id number]. Site :?[id number] Study:?CT-Spine Lumbar -06/25/2025 2:15:34 PM Ordering Physician:Theresa Marin Final Report: Indication: SURG 06/12/25 FALL 06/15/25 BACK PAIN. LEG SWELLING. CHECKING HARDWARE Technique: CT lumbar spine without IV contrast Comparison: MRI lumbar spine on May 16, 2025 Findings: No acute fracture or malalignment. Similar appearing slight dextroscoliotic curvature of the thoracic lumbar spine. Normal lumbar lordosis is maintained. No anterolisthesis or retrolisthesis. Interval placement of a posterior spinal fusion construct spanning L3-L5 with intervertebral disc spacer at L4-L5 with no evidence of hardware related complication. Likely some heterotopic ossification seen in the adjacent paraspinal musculature. Similar-appearing degenerative disc disease of the lower lumbar spine and facet arthropathy. No suspicious osseous lesions. Postoperative edema/scarring in the subcutaneous fat about the paraspinal musculature with focal fluid collection at the L4 vertebral body level measuring 2.2 centimeters AP x 3.6 centimeters transverse (series number 3, image 89). Impression: 1. No acute fracture or malalignment. 2. Posterior spinal fusion construct spanning L3-L5 without evidence of hardware related fracture or loosening. 3. Postoperative edema/scarring in the subcutaneous fat about the paraspinal musculature with focal fluid collection at the L4 vertebral body level measuring 2.2 x 3.6 centimeters, favored to represent a postoperative seroma versus less likely abscess in the appropriate clinical context. Please note that all CT scans at this facility use dose modulation, iterative reconstruction, and/or weight-based dosing when appropriate to reduce radiation dose to as low as reasonably achievable. Dictated by Teddy Monroy MD @ 06/25/2025 2:48:46 PM (Electronic Signature) Venous US: Attestation: I have reviewed the pertinent imaging results. Radiologist's impression: Patient: LARA ANDERSON Facility:?[facility] Patient ID:?[id number] Site Patient ID:?[id number]. Site :?[id number] Study:?US-Extremity Bilateral LEV-06/25/2025 3:08:00 PM Ordering Physician:?Mo Marin Final Report: Indication: bilateral lower extremity swelling after lumbar surgery Technique: Real-time longitudinal and transverse sonographic grayscale imaging with and without compression, as well as color, duplex, and spectral Doppler imaging before and after augmentation, was obtained of the deep system of the bilateral lower extremities, including the common femoral, femoral, popliteal, posterior tibial, and peroneal veins. Comparison: 09/27/2024. Findings: Right lower extremity: Common femoral vein: No evidence of thrombus. Femoral vein: No evidence of thrombus. Popliteal vein: No evidence of thrombus. Calf veins: Patent. Left lower extremity: Common femoral vein: No evidence of thrombus. Femoral vein: No evidence of thrombus. Popliteal vein: No evidence of thrombus. Calf veins: Patent. Impression: No ultrasound evidence of deep venous thrombosis. Dictated by Candelario Hernandez MD @ 06/25/2025 3:30:32 PM (Electronic Signature) Discharge Plan Discharge Clinical Impression: Edema of both lower extremities Patient Disposition: Home, Self-Care Condition: Stable Instructions: Leg Edema (ED) Additional Instructions: Can try a light compression with Fran wraps until you get your compression stockings. Massaging may help as well. Elevating legs heart level or above when resting is beneficial as well. Continue moving and ambulating, follow your postoperative back surgery recommendations. Try to minimize sodium intake, excessive salt can increase edema. If your symptoms are worsening, have further concerns, please seek re-evaluation. Can continue with Tylenol 1000 mg 3 times a day for pain management. Prescriptions: No Action multivitamin [Multiple Vitamins] Tablet 1 tab PO DAILY viviscal PO sertraline 50 mg tablet 50 mg PO QDAY Qty: 90 1RF methocarbamol 750 mg tablet 750 mg PO Q6H gabapentin 300 mg capsule 600 mg PO QPM Qty: 180 3RF Follow Up/Referrals: Brianna Ball PA-C [Primary Care Provider, Family Practice] Stand Alone Forms: [facility] [employer] ABth Info Instructions
--- NOTE | 2025-06-25 13:38 | CRLHL7_ITS ---
For Patients: As a result of the Century Cures Act, medical imaging exams and procedure reports are released immediately into your electronic medical record. You may view this report before your referring provider. If you have questions, please contact your health care provider. Indication: SURG 06/12/25 FALL 06/15/25 BACK PAIN. LEG SWELLING. CHECKING HARDWARE Technique: CT lumbar spine without IV contrast Comparison: MRI lumbar spine on May 16, 2025 Findings: No acute fracture or malalignment. Similar appearing slight dextroscoliotic curvature of the thoracic lumbar spine. Normal lumbar lordosis is maintained. No anterolisthesis or retrolisthesis. Interval placement of a posterior spinal fusion construct spanning L3-L5 with intervertebral disc spacer at L4-L5 with no evidence of hardware related complication. Likely some heterotopic ossification seen in the adjacent paraspinal musculature. Similar-appearing degenerative disc disease of the lower lumbar spine and facet arthropathy. No suspicious osseous lesions. Postoperative edema/scarring in the subcutaneous fat about the paraspinal musculature with focal fluid collection at the L4 vertebral body level measuring 2.2 centimeters AP x 3.6 centimeters transverse (series number 3, image 89). Impression: 1. No acute fracture or malalignment. 2. Posterior spinal fusion construct spanning L3-L5 without evidence of hardware related fracture or loosening. 3. Postoperative edema/scarring in the subcutaneous fat about the paraspinal musculature with focal fluid collection at the L4 vertebral body level measuring 2.2 x 3.6 centimeters, favored to represent a postoperative seroma versus less likely abscess in the appropriate clinical context. Please note that all CT scans at this facility use dose modulation, iterative reconstruction, and/or weight-based dosing when appropriate to reduce radiation dose to as low as reasonably achievable. Dictated by Teddy Monroy MD @ 06/25/2025 2:48:46 PM (Electronically Signed)
--- NOTE | 2025-06-25 13:38 | CRLHL7_ITS ---
For Patients: As a result of the Century Cures Act, medical imaging exams and procedure reports are released immediately into your electronic medical record. You may view this report before your referring provider. If you have questions, please contact your health care provider. Indication: bilateral lower extremity swelling after lumbar surgery Technique: Real-time longitudinal and transverse sonographic grayscale imaging with and without compression, as well as color, duplex, and spectral Doppler imaging before and after augmentation, was obtained of the deep system of the bilateral lower extremities, including the common femoral, femoral, popliteal, posterior tibial, and peroneal veins. Comparison: 09/27/2024. Findings: Right lower extremity: Common femoral vein: No evidence of thrombus. Femoral vein: No evidence of thrombus. Popliteal vein: No evidence of thrombus. Calf veins: Patent. Left lower extremity: Common femoral vein: No evidence of thrombus. Femoral vein: No evidence of thrombus. Popliteal vein: No evidence of thrombus. Calf veins: Patent. Impression: No ultrasound evidence of deep venous thrombosis. Dictated by Candelario Hernandez MD @ 06/25/2025 3:30:32 PM (Electronically Signed)
== END 2025-06-25 15:46 | disposition home or self-care (01) ==
PROVIDERS: Emergency Provider Family Medicine; PCP Physician Assistant Medical
DX: R60.9 Edema, unspecified (principal)
CPT/HCPCS: 72131; 93970; 99284

== ENCOUNTER 2025-07-09 09:45 | Outpatient (RCR) | payer MEDICARE, OTHER, SELFPAY ==
--- NOTE | 2025-07-06 14:44 | PT.OPE ---
PT [facility] Outpatient Eval PT [facility] Outpatient Eval Start: 07/06/25 12:31 Freq: Status: Active Protocol: Document 07/06/25 14:43 CJT (Rec: 07/06/25 14:44 CJT [id number]) E-signed By Keyon Mancera PT Physical Therapy Outpatient Evaluation Insurance Information Recert Due Date 10/04/25 Insurance Name Medicare B Medical Diagnosis H81.11 - BPPV, R ear Treating Diagnosis H81.12 - BPPV, L ear Referring Brianna Waterman; Maria M Davis Subjective Preferred Name Lara Subjective Pt presents with complaints of vertigo that started this AM. Spent lots of time outside yesterday. Was quite tired this AM so took a nap. When she woke up she moved to her chair downstairs when she experienced sudden room spinning dizziness. Pt reports that as she turned her head back and forth from side to side the dizziness got worse. She is feeling better now than she did earlier in the day. Pt recently had L5-S1 lumbar fusion on 06/12/25. Current Work Status Retired Precautions Therapy Limitations/ Not Limited Systems Review Objective Other/Pertinent Oculomotor Testing Objective Gaze Stabilization: negative Smooth Pursuits: negative Saccades: negative Convergence: negative Head Shake: negative Head Thrust: negative Positional Testing -R [place]-Hallpike: negative -L Krystin-Hallpike: positive for dizziness and L beating torsional nystagmus lasting approx 20-25 seconds -R Roll: DNT -L Roll: DNT Assessment Assessment/ Lara is a very pleasant 80 year old female who Impression presents to our clinic for evaluation and treatment of vertigo. Positional testing was difficult today due to pt having recently had lumbar fusion procedure just 4 weeks ago. Pt demonstrated L beating torsional nystagmus lasting approx 20-25 seconds with a L [place]- Hallpike test. A L Herman was immediately performed and pt noted mild resolution in symptoms. Because of pts lumbar restrictions, I felt it was better for Lara to attempt performing a Rita-Semont maneuver as this utilizes a log roll technique which she is very familiar with at this point. The nature of the pts condition was explained and all questions were answered to the pts satisfaction. Skilled PT services are medically necessary to address deficits and return patient to highest level of function. Recommend physical therapy sessions 1/week for 2-4 weeks. Pt agrees with this plan. Printout of HEP was given for I completion and pt gives verbal understanding of each exercise. Primary Functional Walking, turning Limitations Plan of Care Rehabilitation Good Potential Physical Therapy STG - To be completed in 2-3 weeks: Goals 1. Pt will report reduction in dizziness frequency and intensity so that they may return to normal bed mobility with minimal bouts of dizziness. LTG - To be completed in 4 weeks: 1. Pt will report ability to roll over in bed to either side without onset of dizziness so that they may roll over in bed without waking. 2. Pt will score 120/120 on mCTSIB as indication of improved vestibular component of balance to reduce risk of falls. 3. Pt will report absence of dizziness with all positional testing so that they may perform all activities with similar head/neck positions including rolling over in bed, washing hair in shower without onset of dizziness. Treatment Plan/ Canalith Repositioning,Heat,Ice/Cold/Vasopneumatic, Direct Interventions Joint Mobilization,Manual Therapy,Neuromuscular Re-ed, Self-Care/Home Management,Therapeutic Exercises Frequency/Duration 1/week for 2-4 weeks Patient Will Be Completion of LTG(s),Skills Plateau,Independent w/HEP, Discharged From Independently Progressing Therapy Evaluation Billing Untimed Code 37 Treatment Minutes PT Eval No Charge No Complexity Low Certification Information Initial 07/06/25 Certification Date Ending Certification 10/04/25 Date Provider Signature Yes Required Provider Signature POC & Medical Necessity Shows Agreement With Physician NPI Number Write NPI# Here Physician Comment/ : Change Physician Signature Please Sign/Date Here & Date Requested
== END 2025-09-14 09:53 | disposition home or self-care (01) ==
PROVIDERS: PCP Physician Assistant Medical; Visit Provider Nurse Practitioner Family
DX: H81.11 Benign paroxysmal vertigo, right ear (principal); H81.12 Benign paroxysmal vertigo, left ear; Z51.89 Encounter for other specified aftercare
CPT/HCPCS: 97161; 97535

== ENCOUNTER 2025-09-05 11:10 | Outpatient (CLI) | payer MEDICARE, OTHER, SELFPAY | END 2025-09-05 11:11 | disposition home or self-care (01) | LOC: NFLDREF 09-24 08:42 | PROVIDERS: PCP Physician Assistant Medical; Referring Provider Physician Assistant Medical; Visit Provider Physician Assistant Medical | DX: E78.5 Hyperlipidemia, unspecified (principal); R73.03 Prediabetes; R03.0 Elevated blood-pressure reading, without diagnosis of hypertension; E78.2 Mixed hyperlipidemia | CPT/HCPCS: 80053; 80061 ==